=== PATIENT | female | born 1985 | race Caucasian/White ===

== ENCOUNTER → 2020-09-02 13:38 | Outpatient (CLI) | payer BC, SELFPAY ==
--- NOTE | ~2020-09-02 | XR_ITS ---
XR foot LT min 3V DATE: 09/02/2020 13:51 INDICATION: Left foot pain TECHNIQUE: 4 views COMPARISON: None FINDINGS: Posterior calcaneal enthesopathy. No fracture or dislocation, periosteal reaction or bone destruction. IMPRESSION: Posterior calcaneal enthesopathy Reviewed, dictated and finalized at location A.
== END ==
PROVIDERS: Visit Provider Physician Assistant
DX: M79.672 Pain in left foot (principal); M77.32 Calcaneal spur, left foot
CPT/HCPCS: 73630

== ENCOUNTER 2024-08-25 02:30 | Day surgery (SDC) | payer BC, SELFPAY ==
[2024-08-15 14:45] VITALS: BMI 40.9
--- NOTE | 2024-08-15 14:56 | PC.NURSE ---
Report to the Outpatient Waiting Room, entrance under the green pavilion located off [facility], at time _0830am on date __08/25/24 . Planned Procedure Time: 1030am .? Time changes happen often and if your time is changed the preop area will call you the afternoon before. - You and your visitor will be asked to self-screen and do not enter if you have any COVID symptoms. Please call surgeon if you need to reschedule. - A mask is optional within the hospital at this time. Patients may have clear liquids (water, carbonated beverages, clear teas, apple juice) until 3 hours prior to surgery with a maximum of 20 ounces. - No food from midnight until time of surgery and no smoking, or chewing tobacco (or any form of nicotine). No chewing gum, candy or mints. (0730am) - Take only the following medications with a SIP of water on the morning of surgery: _ Gabapentin, Labetalol, Levothyroxine, Sertaline, Buspirione, Tylenol if needed DO NOT STOP ANY OF YOUR OTHER PRESCRIPTION MEDICATIONS PRIOR TO SURGERY EXCEPT THE FOLLOWING Hold all vitamins and supplements for 3 days per anesthesiologist. Date to take last dose____08/21/24 Please no make-up, nail occitan, hairspray, perfume, deodorant, or body powder the day of surgery.? No jewelry (including any body piercings) or valuables the day of surgery, leave them at home.? Please take a shower or bath the night before, or the morning of, surgery with an antibacterial soap.? Wear comfortable, loose fitting clothing.? - Jewelry must be removed prior to entering the operating room.? Rings and piercings that are not removed may be cut off. - The hospital will not accept responsibility for valuables.? - Please leave all valuables, including medications, at home the day of surgery. If you are going home after surgery, a licensed charter and tour bus driver must drive you home.? - NO public transportation without another adult if you receive anesthesia. - We recommend that an adult stay with you for 24 hours following discharge. - We also recommend that you do not drive, make important decision, drink alcoholic beverages, or take any drugs that were not prescribed by your health care provider for at least 24 hours after your discharge time. Follow any additional instructions given to you from your surgeon. Telephone instructions given to __patient and asked if any additional questions and then verbalized understanding. Patient advised to call surgeon office or pre surgery nurse liaison [phone] if any additional questions.
--- OUTSIDE RECORDS SUMMARY | 2024-08-25 02:32 | XMS_ITS | Continuity of Care Document ---
Author Organization [facility] Address [address] [place] [address] Phone Care Team Providers Care Programmer Engineering And Scientific Name Role Phone Unavailable Unavailable Unavailable Advance Directives Directive Yes / No Effective Date File Name No Information Encounters Encounter Description Practice Location Reason(s) For Visit Diagnoses Date Provider Providers Copied on Encounter [facility], [address] [facility], [place], [place], [id number], [place] tel:[phone] [facility] No Information 7 No Information Referring Provider: IHSAN AVERY, [address] [place] [address],[place], [address]. tel:[phone] Family History Family Member Type Diagnosis Age At Onset No Information Payers Payer name Insurance type Covered alliance party ID Authoriza kareem(s) [facility] PPO [id number] Social History Type Description Quantity Date Captured Comments Sex Female Smoking Status No Information Chief Complaint And Reason For Visit No Information History Of Present Illness Encounter Date Complaint History Of Prese nt Illness No Information Instructions Date Instruction Additional Infor mation No Information Assessments Type Assessment Date No Information
--- OUTSIDE RECORDS SUMMARY | 2024-08-25 02:32 | XMS_ITS | Referral Summary ---
Author Organization [facility] Address [address] [place] [address] Care Team Providers Care Cnc Set Up Operator Name Role Phone Don Otto MD Unavailable Unavailable Francine Park Primary Care Pr ovider Source Comments [facility],non-owned Affiliates and Associated Physician Practices is amultiple site organization consisting of ambulatory clinics and hospital sitesin [place], [place], [place] and [place]. This disclosure is being madepursuant to the Care Everywhere program and may not contain all information available regarding this patient. Last updated 18.[facility] Encounters Date Type Department Care Team Description 08/08/2024 Orders Only [facility] [address] [place] [address] Debbie Lozano, RN Thoracic radiculopathy 08/07/2024 Refill [facility] [address] [place] [address] Delia Tyler, BROOM WORKER-PROGRAM INSTRUCTOR Refill Request 07/24/2024 Refill [facility] [address] [place] [address] Delia Tyler, BROOM WORKER-PROGRAM INSTRUCTOR Refill Request 07/10/2024 Refill [facility] [address] [place] [address] Delia Tyler, BROOM WORKER-PROGRAM INSTRUCTOR Refill Request 06/25/2024 Refill [facility] Pain Care [address] [facility] [address] [place] [address] Delia Tyler, BROOM WORKER-PROGRAM INSTRUCTOR Refill Request 06/08/2024 Refill [facility] Pain Care [address] [facility] [address] [place] [address] Delia Tyler, BROOM WORKER-PROGRAM INSTRUCTOR Refill Request 05/29/2024 Refill [facility] [address] [place] [address] Delia Tyler, BROOM WORKER-PROGRAM INSTRUCTOR Refill Request from Last 3 Months Allergies Active Allergy Reactions Criticality Noted Date Comments Hydroxychloroquine Sulfate Other 3 She has a history of anxiety Medications * Be aware that medications may not be up to date on this document. Alwaysverify current medications with the patient. Medication Sig Dispensed Refills Start Date End Date Status labetalol (NORMODYNE; TRANDATE) 100 MG tablet TAKE ONE TABLET BY MOUTH TWICE A DAY 6 Active hydroCHLOROthiazi de (HYDRODIURIL) 25 MG tablet TAKE ONE TABLET BY MOUTH ONCE DAILY 6 Active cyclobenzaprine (FLEXERIL) 10 MG tablet Take 1 tablet every day by oral route at bedtime for 7 days. Active fluticasone propionate (Flonase) 50 MCG/ACT nasal spray Flonase Allergy Relief Active busPIRone (Buspar) 10 MG tablet buspirone 10 mg tablet Active cetirizine (ZyrTEC ALLERGY) 10 MG gel capsule Active metFORMIN ER 24hr (Glucophage XR) 500 MG tablet 3 Active Machelle 0.35 MG tablet 2 Active sertraline (Zoloft) 50 MG tablet 2 Active Mounjaro 10 MG/0.5ML injection INJECT 10 MG EVERY WEEK BY SUBCUTANEOUS ROUTE DIRECTED. 2 Active traMADol (Ultram) 50 MG tablet TAKE 1 TABLET BY MOUTH 2 TIMES A DAY NEEDED FOR PAIN. 2 Active ketorolac (Toradol) 10 MG tabletIndications :Spondylosis of thoracic spine at multiple levels with radiculopathy,Spa sm of muscle of lower back Take 1 (one) tablet by mouth every 6 hours 20 tablet 3 Active traMADol (Ultram) 50 MG tablet tramadol 50 mg tablet 2 Active ALPRAZolam (Xanax) 0.25 MG tablet alprazolam 0.25 mg tablet TAKE 1 TABLET (0.25 MG TOTAL) BY MOUTH ONCE FOR 1 DOSE, TAKE 30 MINUTES PRIOR TO MRI 3 Active levothyroxine (Synthroid) 75 MCG tablet every 24 hours Active Melatonin 1 MG CHEW Active valsartan (Diovan) 160 MG tablet 3 Active albuterol HFA (Proventil; Ventolin; Proair) 108 (90 Base) MCG/ACT inhaler Inhale 2 (two) puffs by mouth every 6 hours 4 Active busPIRone (Buspar) 10 MG tablet Take 1 (one) tablet by mouth 2 times daily Active labetalol (Normodyne; Trandate) 100 MG tablet Take 1 (one) tablet by mouth every 12 hours Active phentermine (Ionamine) 15 MG capsule Take 1 (one) capsule by mouth once daily 4 Active methocarbamol (Robaxin) 500 MG tabletIndications :Thoracic radiculopathy,Spa sm of muscle TAKE 1 TABLET BY MOUTH EVERYDAY AT BEDTIME 30 tablet 5 Active gabapentin (Neurontin) 100 MG capsule TAKE 1 CAPSULE BY MOUTH EVERY DAY IN THE MORNING 30 capsule 5 Active gabapentin (Neurontin) 300 MG capsuleIndication s:pt takes 100mg in the am and 300mg at bed time Take 1 (one) capsule by mouth at bedtime Reasons: pt takes 100mg in the am and 300mg at bed time 30 capsule 2 5 Active gabapentin (Neurontin) 300 MG capsuleIndication s:Thoracic radiculopathy Take 1 (one) capsule by mouth 2 times daily 60 capsule 2 4 025 Discontinued(Re order) gabapentin (Neurontin) 100 MG capsule TAKE 1 CAPSULE BY MOUTH EVERY DAY IN THE MORNING 30 capsule 5 025 Discontinued Active Problems Problem Noted Date Diagnosed Date Lumbar radiculopathy 06/04/2022 IBS (irritable bowel syndrome) 07/20/2012 Overview (07/20/2012): 07/20/2012 spells of crampy abd pain will try Levsin and report to PCP Fatigue 03/30/2012 High risk medications (not anticoagulants) long- term use 03/30/2012 Obesity 03/30/2012 Polyarthralgia 03/30/2012 Overview (07/20/2012): 07/20/2012 neg CCP, elevated CRP chronic 20. diagnostic Us hands tenosynovitis wrist flexor compartment focal small erosion single MCP given minimal symptoms with NSAIDs plans for and lack of joint damage will follow off DMARDs Immunizations Name Administration Dates Next Due Covid Moderna primary monova lent 12+ yr 0.5mL 04/22/2022 INFLUENZA VACCINE, QUADR. (F LUZONE; FLULAVAL; FLUARIX; AFLURIA QUADRIVALENT; 6MO+), 0.5 ML (IIV4) 04/22/2022,03/22/2021,04/04/2020 INFLUENZA VACCINE, TRIV. (FL UZONE; FLULAVAL; FLUARIX; AFLURIA TRIVALENT; 6MO+), 0.5 ML (IIV3) 04/22/2017 TD (AGE 7-ADULT) 08/19/2012 TDAP (7yrs+) 10/31/2018 Social History Tobacco Use Types Packs/Day Years Used Date Smoking Tobacco: Former Cigarettes 0.5 4 0 06/21/2011 - 06/21/2015 Smokeless Tobacco: Never Tobacco Cessation:Counseling Given: Not Answered Alcohol Use Standard Drinks/Week Comments No 0 (1 standard drink = 0.6 oz pur e alcohol) Sex and Gender Information Value Date Recorded Sex Assigned at Not on file Gender Identity Not on file Sexual Orientation Not on file Last Filed Vital Signs Vital Sign Reading Time Taken Comments Blood Pressure 129/69 04/03/2024 9:29 AM CDT Pulse 89 04/03/2024 9:29 AM CDT Temperature 37.1 C (98.7 F) 03/17/2024 9:04 AM CDT Respiratory Rate 16 04/03/2024 9:29 AM CDT Oxygen Saturation 100% 03/17/2024 9:37 AM CDT Inhaled Oxygen Concentration - - Weight 119.3 kg (263 lb) 04/03/2024 9:29 AM CDT Height 167.6 cm (5' 6 ) 05/31/2023 12:56 PM ADVERTISING SALES ASSISTANT Body Mass Index 42.45 05/31/2023 12:56 PM ADVERTISING SALES ASSISTANT Plan of Treatment Not on file Care Teams Cnc Set Up Operator Relationship Specialty Start Date End Date Francine Park PA [address] [place] [id number] PCP - General 06/26/22 Don Otto MD [facility] 04/13/12
--- OUTSIDE RECORDS SUMMARY | 2024-08-25 02:32 | XMS_ITS | Clinical Summary ---
Author Organization [facility] Address [address] [place] [address] Phone Care Team Providers Care Foreign Language Teacher Name Role Phone Francine Venegas Primary Care Provider [phone] Social History Tobacco Use Types Packs/Day Years Used Date Smoking Tobacco: Never Assessed Comments Unknown Sex and Gender Information Value Date Recorded Sex Assigned at Not on file Legal Sex Female 1:52 PM CDT Gender Identity Not on file Sexual Orientation Not on file Plan of Treatment Health Maintenance Due Date Last Done Comments HEPATITIS B VACCINES (1 of 3 - 19+ 3-dose series) 11/03/2006 CERVICAL CANCER SCREENING 11/03/2017 INFLUENZA VACCINE (#1) 2024 04/22/2017 DTAP/TDAP/TD VACCINES (2 - T d or Tdap) 10/31/2028 10/31/2018 HPV VACCINES Aged Out No longer eligi ble based on patient's age to complete this topic PNEUMOCOCCAL VACCINE 0-49 YEARS Aged Out No longer eligible based on patient's age to complete this topic Insurance [facility] BLUE ACCESS CHOICE Care Teams Foreign Language Teacher Relationship Specialty Start Date End Date Francine Venegas PA PCP - General Physician [employer] Line Core Feeder 11/11/18
--- OUTSIDE RECORDS SUMMARY | 2024-08-25 02:32 | XMS_ITS | Data Portability ---
Author Organization [place] [facility]- Address # [address] [facility] [address] [place] [address] Assessment No assessment recorded. Plan of Treatment Reminders Order Date Submit Date Provider Last Modified By Organization Details Last Modified Time Details Appointments None record ed. Lab None record ed. Referral None record ed. Procedures None record ed. Surgeries None record ed. Imaging None record ed. Medication Orders None record ed. Patient TargetsNo targets recorded. Patient InstructionsNo instructions recorded. Reason for Referral None Reported. Problems No Known Problems Medical Equipment None Reported. Allergies No known drug allergies Medications Not known to be on any medication Vitals None Recorded Social History None recorded. Functional Status None recorded. Mental Status None recorded. Family History Nothing Reported. Medical History No medical history recorded. Gynecological HistoryNo gynecological history recorded. Obstetrics History GPAL:G 0 P 0 0 0 0 Immunizations Vaccine Type Date Status Note Provider Nam e and Address Organization Details Recorded Time Influenza, split virus, quadrivalent, PF 03/22/[address], 03/22/2021 11:08:11 Past Encounters Encounter ID Performer Location Encounter Start Date Encounter Closed Date Diagnosis/Indication Diagnosis SNOMED-CT Code Diagnosis ICD10 Code Diagnosis Note [id number] [facility] [address] [facility] [address] [place] [address] 03/22/2021 08:05:44 05/08/2021 17:12:31 Active or passive immunization [id number] Z23 Health Concerns Section Related Observation LastModified by Organization Detai ls LastModified Time None Recorded Concern Status LastModified by Organization Details LastModified Time None Recorded Advance Directives Directive None Recorded Payers Encounter Date Sequence Insurance Name Policy Number Policy Webster Covered Member ID Webster Member ID Guarantor Name 03/22/2021 1 [employer]: (PPO) [id number] Angel Donnelly [id number] Angel Donnelly OBGyn Episode No OBEpisode recorded.
--- OUTSIDE RECORDS SUMMARY | 2024-08-25 02:32 | XMS_ITS | Clinical Summary ---
Author Organization [facility] [employer] Address [address] [place] [address] Care Team Providers Care Sectionizer Name Role Phone Don Otto MD Unavailable Unavailable Francine Park Primary Care Pr ovider Source Comments [facility] [employer],non-owned Affiliates and Associated Physician Practices is amultiple site organization consisting of ambulatory clinics and hospital sitesin [place], [place], [place] and [place]. This disclosure is being madepursuant to the Care Everywhere program and may not contain all information available regarding this patient. Last updated 18.[facility] [employer] Allergies Active Allergy Reactions Criticality Noted Date [...] of joint damage will follow off DMARDs Encounters Date Type Department Care Team Description 08/08/2024 Orders Only [facility] Health Pain Care [address] [place], [place] [address] [address] [place] [address] Debbie Lozano, RN Thoracic radiculopathy 08/07/2024 Refill [facility] [address] [place] [address] [address] [place] [address] Delia Tyler, ASPHALT SMOOTHER-RESIDENT MEDICAL OFFICER Refill Request 07/24/2024 Refill [facility] [address] [place] [address] Ave [address] [place] [address] Delia Tyler, ASPHALT SMOOTHER-RESIDENT MEDICAL OFFICER Refill Request 07/10/2024 Refill [facility] [address] [place] [address] [address] [place] [address] Delia Tyler, ASPHALT SMOOTHER-RESIDENT MEDICAL OFFICER Refill Request 06/25/2024 Refill [facility] [address] [place] [address] Delia Tyler, ASPHALT SMOOTHER-RESIDENT MEDICAL OFFICER Refill Request 06/08/2024 Refill [facility] [address] [place] [address] Delia Tyler, ASPHALT SMOOTHER-RESIDENT MEDICAL OFFICER Refill Request 05/29/2024 Refill [facility] [address] [place] [address] Delia Tyler, ASPHALT SMOOTHER-RESIDENT MEDICAL OFFICER Refill Request from Last 3 Months Immunizations Name Administration Dates Next Due Covid Moderna primary monova lent 12+ yr 0.5mL 04/22/2022 INFLUENZA VACCINE, QUADR. (F LUZONE; FLULAVAL; FLUARIX; AFLURIA QUADRIVALENT; 6MO+), 0.5 ML (IIV4) 04/22/2022,03/22/2021,04/04/2020 INFLUENZA VACCINE, TRIV. (FL UZONE; FLULAVAL; FLUARIX; AFLURIA TRIVALENT; 6MO+), 0.5 ML (IIV3) 04/22/2017 TD (AGE 7-ADULT) 08/19/2012 TDAP (7yrs+) 10/31/2018 Family History Medical History Relation Name Comments Arthritis - Osteo Maternal Grandmother Hypertension Maternal Grandmother Arthritis - Osteo Mother Hypertension Mother Cancer Paternal Grandfather Cancer Paternal Grandmother Relation Name Status Comments Father Alive Maternal Grandmother Mother Alive Paternal Grandfather Paternal Grandmother Sister Alive Social History Tobacco Use Types Packs/Day Years [...] cm (5' 6 ) 05/31/2023 12:56 PM NITROGLYCERIN SEPARATOR OPERATOR Body Mass Index 42.45 05/31/2023 12:56 PM NITROGLYCERIN SEPARATOR OPERATOR Plan of Treatment Health Maintenance Due Date Last Done Comments PAP SMEAR 1987 HIV SCREENING 11/03/2002 HEPATITIS C SCREENING 10/30/2005 HEPATITIS B VACCINE (1 of 3 - 19+ 3-dose series) 11/03/2006 COVID-19 VACCINE ( season) 2024 04/22/2022, 04/22/2022, 07/15/2021, Additional history exists INFLUENZA VACCINE (#1) 2024 2, 03/22/2021, 04/04/2020, Additional history exists DEPRESSION SCREENING 06/21/2024 DTAP/TDAP/TD VACCINES (3 - Td or Tdap) 10/31/2028 10/31/2018, 08/19/2012 ZOSTER VACCINE (1 of 2) 11/03/2037 HIB VACCINE Aged Out No longer eligi ble based on patient's age to complete this topic HPV VACCINE Aged Out No longer eligi ble based on patient's age to complete this topic MENINGOCOCCAL (Group B) VACCINE Aged Out No longer eligible based on patient's age to complete this topic MENINGOCOCCAL VACCINE Aged Out No maci fabiola eligible based on patient's age to complete this topic PNEUMOCOCCAL VACCINE Aged Out No long er eligible based on patient's age to complete this topic Care Teams Sectionizer Relationship Specialty Start Date End Date Francine Park PA [address] [place] [address] PCP - General 06/26/22 Don Otto MD Rheumatology 04/13/12
--- OUTSIDE RECORDS SUMMARY | 2024-08-25 02:32 | XMS_ITS | Data Portability ---
Author Organization [facility] GERONIMODary Address [address] [facility] [place] [address] Care Team Providers Care Smoke Tester Name Role Phone CHUNG MIXON Primary Care Provider IHSAN Schaefer Dementia Program Director [phone] Assessment No assessment recorded. Plan of Treatment Reminders Order Date Submit Date Provider Last Modified By Organization Details Last Modified Time Details Appointments ANY 15 2024 08:45A M NOÉ Ovalle Not available Not available Not available Lab insulin, serum 2023 025 [email or web address] [facility], [address] [place], [address], 03/27/2024 10:35:15 HbA1c (hemoglob in A1c), blood 2023 025 [email or web address] [facility], [address] [place], [address], 03/27/2024 10:35:14 CMP, serum or plasma 2023 025 [email or web address] [facility], [address] [place], [address], 03/27/2024 10:35:15 CBC w/ auto diff 2023 025 [email or web address] [facility], [address] [place], [address], 03/27/2024 10:35:15 iron + TIBC + ferritin, serum 2023 025 [email or web address] [facility], [address] [place], [address], 03/27/2024 10:35:14 vitamin B12 + folate, serum or blood 2023 025 [email or web address] [facility], [address] [place], [address], 03/27/2024 10:35:15 TSH + free T4, serum 2023 025 [email or web address] [facility], [address] [place], [address], 03/27/2024 10:35:15 insulin, serum 2023 024 [facility], [address] [place], [address], 09/23/2023 14:05:38 HbA1c (hemoglob in A1c), blood 2023 024 [facility], [address] [place], [address], 09/23/2023 14:05:38 CMP, serum or plasma 2023 024 [facility], [facility] [place] [place], [address], 09/23/2023 14:05:38 CBC w/ auto diff 2023 024 [facility], [address] [place], [address], 09/23/2023 14:05:38 TSH + free T4, serum 2023 024 [facility], [address] [place], [address], 09/23/2023 14:05:38 Referral None recorded. Procedures None recorded. Surgeries None recorded. Imaging None recorded. Medication Orders Mounjaro 15 mg/0.5 mL subcutane ous pen injector 2023 024 [id number], [address] [place], [place], [address], 03/27/2024 10:35:21 Synthroid 75 mcg tablet 2023 024 [facility], [address] [facility] [facility] , [address], [place], [address], 03/27/2024 10:35:22 Vyvanse 30 mg capsule 2023 024 [id number], [address], [place], [address], 05/11/2024 15:45:18 phentermi ne 15 mg capsule 2023 024 [email or web address], [address], [place], [address], 03/27/2024 09:57:48 Zithromax Z-Daniel 250 mg tablet 2023 024 [email or web address], [address], [place], [address], 09/24/2023 14:07:02 prednison e 20 mg tablet 2023 024 [email or web address], [address], [place], [address], 03/27/2024 09:57:41 albuterol sulfate HFA 90 mcg/actua tion aerosol inhaler 2023 024 [id number], [address], [place], [address], 06/30/2024 08:16:53 Patient TargetsNo targets recorded. Patient InstructionsNo instructions recorded. Reason for Referral None Reported. Results Created Date Observation Date Name Description Value Unit Range Abnormal Flag Note LastModifiedBy Organization Detail LastModifiedTime Result Notes None recorded. Problems Name Problem SNOMED Code Status Onset Date Resolution Date Notes Provider Name and Address Organization Details Recorded Time Benign essential hypertension 4211673 Active 2023 Claire Ibarra null, [place] - [facility] 4 11:08:22 Mixed anxiety and depressive disorder 954919808 Active 2023 Claire [place]bar[place] [facility] 4 11:08:30 Hypothyroidism 08398475 Active 2023 Claire Ibar[place], [place] [facility] 4 11:08:35 Prediabetes 208048127 Active 2023 NOÉ Ovalle Attn: Accountin g,[address] [facility], [place], [address], [place] - [facility] 4 10:22:11 Body mass index 40+ - severely obese 281983571 Active 2023 NOÉ Ovalle Attn: Accountin g,[address] [facility], [place], [address], [place] - [facility] 4 10:22:17 Long-term drug therapy Active 2023 NOÉ Ovalle Attn: Accountin g,[address] [facility], [place], [address], [place] - [facility] 4 10:22:18 Attention deficit hyperactivity disorder, predominantly inattentive type 79892179 Active 2023 NOÉ Ovalle Attn: Accountin g,[address] [facility], [place], [address], [place] - [facility] 4 10:22:20 Anemia 891689254 Active 2023 NOÉ Ovalle Attn: Accountin g,[address] [place], [address], [place] - [facility] 4 22:00:58 Problem Notes None recorded. Medical Equipment None Reported. Allergies Allergen ID Allergen Name Allergen Category Reaction Reaction Severity Criticality Documentation Date Start Date Code Code System Note Provider Name and Address Organization Details Recorded Time 776505 Placidyl medicatio n Not available Not available Not available 09/02/2023 5 RxNorm Not Available Not Available Not Available Medications Name Sig Start Date Stop Date Status Note LastModified by Organization Details LastModified Time methocarbam ol 500 mg tablet TAKE 1 TABLET BY MOUTH EVERYDAY AT BEDTIME active Not Available Not Available No t Available metformin 500 mg tablet Take 1 tablet every day by oral route at dinner. 03/27 completed Not Available Not Available Not Available azithromyci n 250 mg tablet TAKE 2 TABLETS BY MOUTH TODAY, THEN TAKE 1 TABLET DAILY FOR 4 DAYS DIRECTED 09/23 completed Not Available Not Available Not Available ofloxacin 0.3 % eye drops ADMINISTE R 2 DROPS INTO BOTH EYES 4 (FOUR) TIMES A DAY FOR 7 DAYS 06/30 completed Not Available Not Available Not Available prednisone 20 mg tablet TAKE 2 TABLETS BY MOUTH EVERY DAY FOR 5 DAYS 03/27 completed Not Available Not Available Not Available dextroamphe tamine-amph etamine 10 mg tablet TAKE 1 TAB BY MOUTH DIRECTED LATER AFTERNOON DOSING NEEDED active Not Available Not Available No t Available phentermine 15 mg capsule TAKE 1 CAPSULE BY MOUTH EVERY DAY 03/27 completed Not Available Not Available Not Available levothyroxi ne 100 mcg tablet Take 1 tablet every day by oral route. 06/30 completed Not Available Not Available Not Available buspirone 10 mg tablet TAKE 1 TABLET BY MOUTH TWICE A DAY active Not Available Not Available No t Available Synthroid 75 mcg tablet Take 1 tablet every day by oral route. 2023 active Not Available Not Available Not Avai lable gabapentin 300 mg capsule TAKE 1 CAPSULE BY MOUTH AT BEDTIME active Not Available Not Available No t Available hydrochloro thiazide 25 mg tablet TAKE 1 TABLET BY MOUTH EVERY DAY active Not Available Not Available No t Available gabapentin 100 mg capsule TAKE 1 CAPSULE BY MOUTH EVERY DAY IN THE MORNING active Not Available Not Available No t Available labetalol 100 mg tablet TAKE 1 TABLET BY MOUTH EVERY 12 HOURS active Not Available Not Available No t Available albuterol sulfate HFA 90 mcg/actuati on aerosol inhaler INHALE 2 PUFFS BY MOUTH EVERY 6 HOURS 06/30 completed Not Available Not Available Not Available metformin ER 500 mg tablet,exte nded release 24 hr TAKE 1 TABLET BY MOUTH EVERY DAY active Not Available Not Available No t Available sertraline 50 mg tablet TAKE 1 TABLET BY MOUTH EVERY DAY active Not Available Not Available No t Available amoxicillin 875 mg-marty steele clavulanate 125 mg tablet TAKE 1 TABLET BY MOUTH TWICE A DAY FOR 7 DAYS 06/30 completed Not Available Not Available Not Available valsartan 160 mg tablet TAKE 1 TABLET BY MOUTH EVERY DAY active Not Available Not Available No t Available nitrofurant oin monohydrate /macrocryst als 100 mg capsule TAKE 1 CAPSULE BY MOUTH TWICE A DAY FOR 5 DAYS 03/27 completed Not Available Not Available Not Available hydrochloro thiazide 09/18 completed .25mg Not Available Not Available Not Available cholecalcif inocente (vitamin D3) 1,250 mcg (50,000 unit) capsule TAKE 1 CAPSULE EVERY WEEK BY ORAL ROUTE. 2023 active Not Available Not Available Not Avai lable lisdexamfet amine 30 mg capsule TAKE 1 CAPSULE BY MOUTH EVERY DAY 05/11 completed Not Available Not Available Not Available lisdexamfet amine 40 mg capsule TAKE 1 CAPSULE BY MOUTH EVERY DAY active Not Available Not Available No t Available Mounjaro 15 mg/0.5 mL subcutaneou s pen injector INJECT 15 MG SUBCUTANE OUSLY EVERY WEEK active Not Available Not Available No t Available Mounjaro 10 mg/0.5 mL subcutaneou s pen injector INJECT 10 MG EVERY WEEK BY SUBCUTANE OUS ROUTE DIRECTED. 03/27 completed Not Available Not Available Not Available Mounjaro 12.5 mg/0.5 mL subcutaneou s pen injector INJECT 12.5MG (ONE PEN) UNDER THE SKIN EVERY 7 DAYS DIRECTED 03/27 completed Not Available Not Available Not Available Vitals Date Recorded Body height Body mass index (BMI) Body weight Oxygen saturation Oxygen saturation in Arterial blood by Pulse oximetry Heart rate Respiratory rate Systolic blood pressure Diastolic blood pressure Provider Name and Address Organization Details Last Updated DateTime 167.64 cm 42.8 kg/m2 042358. 98 g 97 % 97 % 85 /min 20 /min 128 mm[Hg] 82 mm[Hg] Pete Rivera MA [facility] 4 10:17:42 Date Recorded Systolic blood pressure Diastolic blood pressure Provider Name and Address Organization Details Last Updated DateTime 09/02/2023 120 mm[Hg] 72 mm[Hg] NOÉ Ovalle Attn: Accounting, [place], [address], [facility] 09/02/2023 10:41:47 Date Recorded Body height Respiratory rate Oxygen saturation Oxygen saturation in Arterial blood by Pulse oximetry Heart rate Systolic blood pressure Diastolic blood pressure Provider Name and Address Organization Details Last Updated DateTime 167.64 cm 20 /min 100 % 100 % 75 /min 122 mm[Hg] 82 mm[Hg] Pete Rivera MA [facility] 10:01:46 Date Recorded Body mass index (BMI) Body weight Provider Name and Address Organization Details Last Updated DateTime 03/27/2024 43.7 kg/m2 388929.53 g NOÉ Ovalle Attn: Accounting,[address] [place], [address], [facility] 03/27/2024 10:11:40 Social History Question Answer Notes LastModified by Organizat ion Details LastModified Time Tobacco Smoking Status Former Smoker Pete Rivera MA null, [facility] 09/02/2023 10:23:23 Do You Have An Advance Directive? No Information not available 03/27/2024 What Is Your Level Of Alcohol Consumption? Occasional Information not available 09/02/2023 Are You Blind Or Do You Have Difficulty Seeing? No Glasses Information not available 09/02/2023 What Is Your Level Of Caffeine Consumption? Occasional Information not available 09/02/2023 In The 14 Days Before Symptom Onset, Have You Had Close Contact With A Laboratory-confir med COVID-19 While That Case Was Ill? No Information not available 09/02/2023 In The 14 Days Before Symptom Onset, Have You Had Close Contact With A Person Who Is Under Investigation For COVID-19 While That Person Was Ill? No Information not available 09/02/2023 Have You Been To An Area Known To Be High Risk For COVID-19? No Information not available 09/02/2023 Are You Deaf Or Do You Have Serious Difficulty Hearing? No Information not available 09/02/2023 What Type Of Diet Are You Following? REGULAR Information not available 09/02/2023 Are There Any Guns Present In Your Home? No Information not available 09/02/2023 What Was The Date Of Your Most Recent Tobacco Screening? 04/03/2024 Information not available 03/27/2024 What Is Your Current Pack Years? 10packyears Information not available 09/02/2023 Do You Use Your Seat Belt Or Car Seat Routinely? Yes Information not available 03/27/2024 Do You Have Smoke And Carbon Monoxide Detectors In Your Home? Yes Information not available 09/02/2023 How Much Tobacco Do You Smoke? No Information not available 09/02/2023 Do You Use Any Illicit Or Recreational Drugs? No Information not available 03/27/2024 Do You Use Sunscreen Routinely? No Information not available 09/02/2023 Has Tobacco Cessation Counseling Been Provided? No Information not available 09/02/2023 How Many Years Have You Smoked Tobacco? 1 Information not available 09/02/2023 Do You Or Have You Ever Used Any Other Forms Of Tobacco Or Nicotine? No Information not available 09/02/2023 Sex: Female Functional Status Question Answer Note LastModified by Organization D etails LastModified Time Are you able to care for yourself? Yes Information n ot available 09/02/2023 Mental Status None recorded. Family History Relationship Description Onset Age of this Age Resolved Age Notes LastModified by Organization Details LastModified Time Mother Disorder of thyroid gland [email or web address] Not available 2023 10:22:12 Mother Hypertensive disorder [email or web address] Not available 2023 10:22:18 Father Disorder of thyroid gland [email or web address] Not available 2023 10:22:13 Father Hypercholest erolemia tcarterma Not available 2023 10:22:32 Brother Hypertensive disorder tcarterma Not available 2023 10:22:23 Medical History Condition Response Coronary Artery Disease N Other N Atrial Fibrillation N High Blood Pressure Y Thyroid Problems N Kidney or Bladder Problems N GI Problems N Depression N COPD N Blood Clots N Skin Problems N Anemia N Heart Attack (NH) N Diabetes N Anxiety Disorder Y Muscle, Joint, or Bone Problems N Seizures/Epilepsy N Acid Reflux (GERD) N Cancer N Stroke N Asthma N Allergies N High Cholesterol N Hepatitis N Liver Disease N Headaches N Osteoporosis N Heart Failure N Gynecological History Statement/Question Response Flow Heavy Date of LMP 03/22/2024 Frequency of Cycle (Q days) 28 Menses Monthly Y Duration of Flow (days) 7 Current Control Method None LMP Definite Obstetrics History GPAL:G 2 P 2 0 0 2 Type Value Multiple Births 0 Full Term 2 Induced 0 Spontaneous 0 Premature 0 Living 2 Ectopics 0 Total 2 Immunizations Vaccine Type Date Status Note Provider Nam e and Address Organization Details Recorded Time COVID-19 vaccine, vector-nr, rS-Ad26, PF, 0.5 mL 1 completed LAURA Prado, [place] - [facility] 03/28/2024 16:54:43 COVID-19, mRNA, LNP-S, PF, 30 mcg/0.3 mL dose, trung-sucrose 2 completed LAURA [place], [place] [facility] 03/28/2024 16:54:43 COVID-19, mRNA, LNP-S, bivalent, PF, 50 mcg/0.5 mL or 25mcg/0.25 mL dose 2 completed LAURA [place], [place] [facility] 03/28/2024 16:54:43 Influenza, split virus, trivalent, PF 7 completed LAURA [place] [facility] 03/28/2024 16:54:43 Td (adult), 2 Lf tetanus toxoid, preservative free, adsorbed 3 completed LAURA [place], [place] [facility] 03/28/2024 16:54:43 Influenza, split virus, quadrivalent, PF 1 completed Pete Rivera MA null, [place] - [facility] 03/28/2024 16:54:43 Influenza, split virus, quadrivalent, PF 0 completed Danyellebrenda LAURA Rivera null, [place] - [facility] 03/28/2024 16:54:43 Influenza, split virus, quadrivalent, PF 2 completed Pete Rivera MA null, [place] - [facility] 03/28/2024 16:54:43 Past Encounters Encounter ID Performer Location Encounter Start Date Encounter Closed Date Diagnosis/Indication Diagnosis SNOMED-CT Code Diagnosis ICD10 Code Diagnosis Note [id number] NOÉ Ovalle [facility] [address] [place] [address] 09/02/2023 09:55:39 09/02/2023 10:51:49 Upper respiratory infection 37895890 J06.9 start zpack and prednisone course as directed. Rx for albuterol hfa PRN use Body mass index 40+ - severely obese 574418905 Z68.41 screening fasting insulin lab and start low dose phentermin e 15mg daily trial Benign ess ential hypertension 3266088 I10 pt is stable on hctz 25mg daily, valsartan 160mg daily, and labetalol 100mg bid. Mixed anxi ety and depressive disorder 517293986 F41.8 stable on sertraline 50mg daily. Hypothyroidism 39526835 E03.9 stable on levothyrox ine 100mcg daily. due for TFT lab panel Prediabetes 848888579 R7 3.03 a1c lab due ; pt is on metformin 500mg daily. She was on mounjaro prior but cost is too high now to continue. Long-term drug therapy 851347862 Z79.899 routine cmp and cbc due. [id number] NOÉ Ovalle [facility] [place] [address] [place] [address] 03/27/2024 09:52:32 03/27/2024 10:50:13 Mixed anxiety and depressive disorder 787502319 F41.8 Stable on BuSpar 10 mg twice daily and sertraline 50 mg daily Benign ess ential hypertension 2463149 I10 pt is stable on hctz 25mg daily, valsartan 160mg daily, and labetalol 100mg bid. Prediabetes 066229576 R7 3.03 5.4% A1c; pt is on metformin 500mg daily. Refill Mounjaro 15 mg weekly dosing Hypothyroidism 91999865 E03.9 Refill synthroid 75 mcg daily and repeat thyroid labs in August Body mass index 40+ - severely obese 903426963 Z68.41 Screening insulin level due again in August Long-term drug therapy 988210859 Z79.899 CMP lab due in August Adult heal th examination 091323435 Z00.01 Annual wellness exam completed Attention deficit hyperactivity disorder, predominantly inattentive type 45541973 F90.0 Letter from therapist reviewed with discussion on positive ADHD findings in their counseling sessions. Patient also tests high on questionna david scoring. We will start trial of Vyvanse 30 mg daily Anemia 503221638 D64.9 Mild decrease in CBC panel we will check iron studies and CBC again in August along with B12 and folic acid. Patient does have heavy menstrual cycles. [id number] NOÉ Ovalle [facility] [address] [place] [address] 06/30/2024 08:20:17 06/30/2024 09:27:25 Benign essential hypertension 1885310 I10 pt is stable on hctz 25mg daily, valsartan 160mg daily, and labetalol 100mg bid. Prediabetes 813859856 R7 3.03 5.4% A1c; pt is on metformin 500mg daily. Refill Mounjaro 15 mg weekly dosing Attention deficit hyperactivity disorder, predominantly inattentive type 80980404 F90.0 Patient is stable on Vyvanse 40 mg daily continue dosing follow-up every 3 months. No refills needed at this time Mixed anxi ety and depressive disorder 695708926 F41.8 Stable on BuSpar 10 mg twice daily and sertraline 50 mg daily Hypothyroidism 40928028 E03.9 synthroid 75 mcg daily and repeat thyroid labs in August Body mass index 40+ - severely obese 123904370 Z68.41 Screening insulin level due again in August Long-term drug therapy 914676936 Z79.899 Health Concerns Section Related Observation LastModified by Organization Detai ls LastModified Time None Recorded Concern Status LastModified by Organization Details LastModified Time None Recorded Advance Directives Directive N: Payers Encounter Date Sequence Insurance Name Policy Number Policy Webster Covered Member ID Webster Member ID Guarantor Name 09/02/2023 1 [place] [id number] 2 Lala Andrzej [id number] Lala N Andrzej 03/27/2024 1 [place] [id number] 2 Lala Andrzej [id number] Lala N Andrzej 06/30/2024 1 [place] [id number] 2 Lala Andrzej [id number] Lala N Andrzej Notes Date Note Type Note Provider Name and Address Organization Details Recorded Time 09/02/2023 text/html Anxiety/Depressi onRepo rted bypatient.Notes:stable on sertraline 50mg daily.Generic HPI TemplateReported bypatient.Notes:insuli n resistance and IGT hx. on metformin and mounjaro.HypertensionR eported bypatient.Notes:pt is stable on hctz 25mg daily, valsartan 160mg daily, and labetalol 100mg bid.ThyroidReported bypatient.Notes:stable on levothyroxine 100mcg daily.Upper Respiratory SymptomsReported bypatient.Location:[facility] Quality:hacking cough Severity:mild Duration:symptoms lasting over 2 weeks Context:no sick contacts; no foreign travel; non-smoker Associated Symptoms:no sputum production; no shortness of breath; no wheezing; no change in number of pillows needed to sleep at night; no sweats; no fever; no significant weight gain; no significant weight loss; no morning cough; no sore throat; no vomiting; no diarrhea; no rash; no nausea NOÉ Ovalle Attn: Accounting,[address] [place], [address], [facility] 09/19/2023 21:35:51 03/27/2024 text/html Anxiety/Depressi onRepo rted bypatient.Notes:stable on sertraline 50mg daily.Generic HPI TemplateReported bypatient.Notes:insuli n resistance and IGT hx. on metformin and mounjaro.HypertensionR eported bypatient.Notes:pt is stable on hctz 25mg daily, valsartan 160mg daily, and labetalol 100mg bid.ThyroidReported bypatient.Notes:stable on levothyroxine 100mcg daily. Due for updated labs NOÉ Ovalle Attn: Accounting,[address], [place], [address], [facility] 04/16/2024 22:03:09 06/30/2024 text/html Anxiety/Depressi onRepo rted bypatient.Notes:stable on sertraline 50mg daily.Generic HPI TemplateReported bypatient.Notes:insuli n resistance and IGT hx. on metformin and mounjaro.HypertensionR eported bypatient.Notes:pt is stable on hctz 25mg daily, valsartan 160mg daily, and labetalol 100mg bid.ThyroidReported bypatient.Notes:stable on levothyroxine 100mcg daily. Binge eating/ADHD: on vyvanse 40mg daily and noticing a very good response on NOÉ Ovalle Attn: Accounting,[address], [place], [address], [facility] 07/20/2024 19:22:39 OBGyn Episode No OBEpisode recorded.
--- OUTSIDE RECORDS SUMMARY | 2024-08-25 02:32 | XMS_ITS | Data Portability ---
Author Organization [place] [facility], Main Office Address [address] [place] [address] Assessment No assessment recorded. Plan of Treatment Reminders Order Date Submit Date Provider Last Modified By Organization Details Last Modified Time Details Appointments None recorded . Lab insulin, serum 023 04/13/20 [email or web address] [facility] [address] [place], [address], 3 15:49:04 HbA1c (hemoglo bin A1c), blood 04/13/20 [email or web address] [facility] [place] [address] [facility] [place], [address], 3 15:49:31 CBC w/ auto diff 04/13/20 [email or web address] [facility] [address] [place], [address], 3 15:49:48 CMP, serum or plasma 04/13/20 [email or web address] [facility] [place] [address] [place], [address], 3 15:49:57 lipid panel, serum 023 04/13/20 [email or web address] [facility], [address] [place], [address], 3 15:50:05 folate, serum 023 04/13/20 [email or web address] [facility] [place] [address] [place], [address], 3 15:49:40 TSH + free T4, serum 023 04/13/20 23 [email or web address] [facility], [address] [place], [address], 3 15:49:21 TSH + free T4, serum 023 10/30/19 23 FAY [facility], [address] [place], [address], 3 15:41:04 Referral None recorded . Procedures None recorded . Surgeries None recorded . Imaging None recorded . Medication Orders None recorded . Patient TargetsNo targets recorded. Patient InstructionsNo instructions recorded. Reason for Referral None Reported. Results Created Date Observation Date Name Description Value Unit Range Abnormal Flag Note LastModifiedBy Organization Detail LastModifiedTime 10/18/19 22 10/23/2021 ESTRA DIOL estradiol 55 pg/mL normal Refer ence Range Folli cular Phase : 19-14 4 Mid-C ycle: 64-35 7 Lutea l Phase : 56-21 4 Postm enopa usal: < or = 31 Refer ence range estab lishe d on post- puber padma patie nt popul ation . No pre-p ubert al refer ence range estab lishe d using this assay . For any patie nts for whom low Estra diol level s are antic ipate d (e.g. males , pre-p ubert al child jose francisco and hypog onada l/pos t-men opaus al femal es), the [facility] t[facility] Estra diol, Ultra sensi tive, LCMSM S assay is recom mansi d (orde r code 18927 ). Plefran e note: patie nts being treat ed with the drug fulve stran t (Fasl odex( R)) have demon strat ed signi fican t inter feren ce in immun oassa y metho ds for estra diol measu remen t. The cross react ivity could lead to false ly eleva meena estra diol test resul ts leadi ng to an inapp ropri ate clini jessie asses sment of estro gen statu s. [facility] order code [id number] -Estr adiol , Ultra sensi tive LC/MS /MS arpita escamilla es negli justice cross react ivity with fulve stran t. Not Available [facility] [place] [address] [place], [address], 10/23/2021 12:59:44 10/18/19 22 10/23/2021 PROGE STERO NE progesterone 1.1 NG/mL normal Refer ence Range s Femal e Folli cular Phase < 1.0 Lutea l Phase 2.6-2 1.5 Post menop ausal < 0.5 Pregn faith 1st Trime ster 4.1-3 4.0 2nd Trime ster 24.0- 76.0 3rd Trime ster 52.0- 302.0 Not Available [facility] [place] [address] [place], [address], 10/23/2021 12:59:43 10/18/19 22 10/23/2021 INSUL IN insulin 16.7 uIU/m L normal Refer ence Range < or = 19.6 Risk: Optim al < or = 19.6 Moder ate NA High >19.6 Adult cardi ovasc ular event risk categ ory cut point s (opti mal, moder ate, high) are based on [facility] popul ation data from 06/09 11. This insul in assay shows stron g cross -reac tivit y for some insul in analo gs (lisp ro, aspar t, and glarg ine) and much lower cross -reac tivit y with other s (dete pam, gluli sine) . Not Available [facility] [place] [address] [place], [address], 10/23/2021 12:59:42 10/18/19 22 10/23/2021 DHEA SULFA TE DHEA sulfate 87 mcg/d L 19-237 normal Not Available [facility] [place] [address] [place], [address], 10/23/2021 12:59:42 10/18/19 22 10/23/2021 CORTI CAYETANO, TOTAL cortisol, total 7.3 mcg/d L normal Refer ence Range : For 8 a.m.( 7-9 a.m.) Speci men: 4.0-2 2.0 Refer ence Range : For 4 p.m.( 3-5 p.m.) Speci men: 3.0-1 7.0 * Pleas e inter pret above resul ts accor dingl y * Not Available [facility] [place] [address] [place], [address], 10/23/2021 12:59:41 10/18/19 22 10/23/2021 VITAM IN B12/F OLATE , SERUM PANEL vitamin B12 374 pg/mL 200-11 00 normal Pleas e Note: Altho ugh the refer ence range for vitam in B12 is 200-1 100 pg/mL , it has been repor meena that betwe en 5 and 10% of patie nts with value s betwe en 200 and 400 pg/mL may exper ience neuro psych iatri c and hemat ologi c abnor malit ies due to occul t B12 defic iency ; less than 1% of patie nts with value s above 400 pg/mL will have sympt oms. Not Available [facility] [address] [place], [address], 10/23/2021 12:59:40 10/18/19 22 10/23/2021 VITAM IN B12/F OLATE , SERUM PANEL folate, serum 8.5 NG/mL normal Refer ence Range Low: <3.4 Borde rline : 3.4-5 .4 Jodie l: >5.4 Not Available [facility] [address] [place], [address], 10/23/2021 12:59:40 10/18/19 22 10/23/2021 T3 REVER SE, LC/MS /MS T3 reverse, lc/MS/MS 16 NG/dL 8-25 This test was devel oped and its stacy tical perfo rmanc e jenifer cteri stics have been deter mined by [facility] . It has not been clear ed or appro zarina by FDA. This assay has been valid ated pursu ant to the CLIA regul ation s and is used for clini jessie purpo ses. Not Available [facility] [place] [address] [place], [address], 10/23/2021 12:59:39 10/18/19 22 10/23/2021 T3, FREE T3, free 3.5 pg/mL 2.3-4. 2 normal Not Available [facility] [place] [address] [place], [address], 10/23/2021 12:59:38 10/18/19 22 10/23/2021 MAGNE SIUM magnesium 2.0 mg/dL 1.5-2. 5 normal Not Available [facility] [place] [address] [place], [address], 10/23/2021 12:59:38 10/18/19 22 10/23/2021 VITAM IN D,25- OH,TO PADMA,I A vitamin D,25-oh,tota l,ia 36 NG/mL 30-100 normal Vitam in D Statu s 25-OH Vitam in D: Defic iency : <20 ng/mL Insuf ficie ncy: 20 - 29 ng/mL Optim al: > or = 30 ng/mL For 25-OH Vitam in D testi ng on patie nts on D2-scales pplem entat ion and patie nts for whom quant itati on of D2 and D3 fract ions is requi red, the [facility](TM ) 25-OH VIT D, (D2,D 3), LC/MS /MS is recom mansi d: order code [id number] (master ents >2yrs ). See Note 1 Note 1 For addit ional infor molly fuentes e refer to http: //julius hickman.Que stDia gnost ics.c om/fa q/FAQ 199 (This link is being provi ded for infor chio nal/ educa nirav l purpo ses only. ) Not Available [facility] [place] [address] [place], [address], 10/23/2021 12:59:37 10/18/19 22 10/23/2021 HEMOG LOBIN A1C hemoglobin A1C 5.3 %_of_ total _HGB <5.7 normal For the purpo se of scree neo for the prese nce of diabe blanka: <5.7% Consi stent with the absen ce of diabe blanka 5.7-6 .4% Consi stent with incre ased risk for diabe blanka (pred iabet es) > or =6.5% Consi stent with diabe blanka This assay resul t is consi stent with a decre ased risk of diabe blanka. Curre ntly, no conse nsus exist s pita champion use of hemog lobin A1c for diagn osis of diabe blanka in child jose francisco. Accor ding to Ameri can Diabe blanka Assoc iatio n (ADA) guide lines , hemog lobin A1c <7.0% repre sents optim al contr ol in non-p regna nt diabe tic patie nts. Diffe rent metri cs may apply to speci fic patie nt popul ation s. Stand ards of Medic al Care in Diabe blanka(A DA). Not Available [facility] [place] [address], [place], [address], 10/23/2021 12:59:36 10/18/19 22 10/23/2021 COMPR EHENS KATHERINE METAB OLIC PANEL eGFR non-afr. kosovan 115 mL/mi n/1.7 3m2 > or = 60 normal Not Available [facility] [address] [place], [address], 10/23/2021 12:59:36 10/18/19 22 10/23/2021 COMPR EHENS KATHERINE METAB OLIC PANEL glucose 100 mg/dL 65-99 high Fasti ng refer ence inter kehinde For someo ne witho ut known diabe blanka, a gluco se value betwe en 100 and 125 mg/dL is consi stent with predi abete s and shoul d be confi rmed with a follo w-up test. Not Available [place] [address] [place], [address], 10/23/2021 12:59:36 10/18/19 22 10/23/2021 COMPR EHENS KATHERINE METAB OLIC PANEL urea nitrogen (BUN) 17 mg/dL 7-25 normal Not Available [facility] [address], [address], 10/23/2021 12:59:36 10/18/19 22 10/23/2021 COMPR EHENS KATHERINE METAB OLIC PANEL creatinine 0.67 mg/dL 0.50-1 .10 normal Not Available [address], [address], 10/23/2021 12:59:36 10/18/19 22 10/23/2021 COMPR EHENS KATHERINE METAB OLIC PANEL eGFR 134 mL/mi n/1.7 3m2 > or = 60 normal Not Available [address], [address], 10/23/2021 12:59:36 10/18/19 22 10/23/2021 COMPR EHENS KATHERINE METAB OLIC PANEL BUN/creatini ne ratio not applic able (calc ) 6-22 Not Available [address], [address], 10/23/2021 12:59:36 10/18/19 22 10/23/2021 COMPR EHENS KATHERINE METAB OLIC PANEL sodium 139 mmol/ L 135-14 6 normal Not Available [address], [address], 10/23/2021 12:59:36 10/18/19 22 10/23/2021 COMPR EHENS KATHERINE METAB OLIC PANEL potassium 4.1 mmol/ L 3.5-5. 3 normal Not Available [address], [address], 10/23/2021 12:59:36 10/18/19 22 10/23/2021 COMPR EHENS KATHERINE METAB OLIC PANEL chloride 102 mmol/ L 98-110 normal Not Available [address], [address], 10/23/2021 12:59:36 10/18/19 22 10/23/2021 COMPR EHENS KATHERINE METAB OLIC PANEL carbon dioxide 28 mmol/ L 20-32 normal Not Available [address], [address], 10/23/2021 12:59:36 10/18/19 22 10/23/2021 COMPR EHENS KATHERINE METAB OLIC PANEL calcium 9.6 mg/dL 8.6-10 .2 normal Not Available [address], [address], 10/23/2021 12:59:36 10/18/19 22 10/23/2021 COMPR EHENS KATHERINE METAB OLIC PANEL protein, total 7.3 g/dL 6.1-8. 1 normal Not Available [address], [address], 10/23/2021 12:59:36 10/18/19 22 10/23/2021 COMPR EHENS KATHERINE METAB OLIC PANEL albumin 4.6 g/dL 3.6-5. 1 normal Not Available [address], [address], 10/23/2021 12:59:36 10/18/19 22 10/23/2021 COMPR EHENS KATHERINE METAB OLIC PANEL globulin 2.7 g/dL_ (calc ) 1.9-3. 7 normal Not Available [address], [address], 10/23/2021 12:59:36 10/18/19 22 10/23/2021 COMPR EHENS KATHERINE METAB OLIC PANEL albumin/glob ulin ratio 1.7 (calc ) 1.0-2. 5 normal Not Available [address], [address], 10/23/2021 12:59:36 10/18/19 22 10/23/2021 COMPR EHENS KATHERINE METAB OLIC PANEL bilirubin, total 0.4 mg/dL 0.2-1. 2 normal Not Available [address], [address], 10/23/2021 12:59:36 10/18/19 22 10/23/2021 COMPR EHENS KATHERINE METAB OLIC PANEL alkaline phosphatase 68 U/L 31-125 normal Not Available [address], [address], 10/23/2021 12:59:36 10/18/19 22 10/23/2021 COMPR EHENS KATHERINE METAB OLIC PANEL AST 25 U/L 10-30 normal Not Available [address], [address], 10/23/2021 12:59:36 10/18/19 22 10/23/2021 COMPR EHENS KATHERINE METAB OLIC PANEL ALT 35 U/L 6-29 high Not Available [address], [address], 10/23/2021 12:59:36 10/18/19 22 10/23/2021 TSH+F REE T4 TSH 2.64 mIU/L normal Refer ence Range > or = 20 Years 0.40- 4.50 Pregn faith Range s First trime ster 0.26- 2.66 Secon d trime ster 0.55- 2.73 Third trime ster 0.43- 2.91 Not Available [address] [place], [address], 10/23/2021 12:59:35 10/18/19 22 10/23/2021 TSH+F REE T4 T4, free 1.1 NG/dL 0.8-1. 8 normal Not Available [address], [address], 10/23/2021 12:59:35 10/18/19 22 10/23/2021 TESTO STERO NE, FREE, BIOAV AILAB LE AND TOTAL , MS albumin 4.8 g/dL 3.6-5. 1 Not Available [address], [address], 10/23/2021 12:59:34 10/18/19 22 10/23/2021 TESTO STERO NE, FREE, BIOAV AILAB LE AND TOTAL , MS sex hormone binding globulin 24.7 nmol/ L 17-124 Not Available [address], [address], 10/23/2021 12:59:34 10/18/19 22 10/23/2021 TESTO STERO NE, FREE, BIOAV AILAB LE AND TOTAL , MS testosterone , free 2.0 pg/mL 0.2-5. 0 Not Available [address], [address], 10/23/2021 12:59:34 10/18/19 22 10/23/2021 TESTO STERO NE, FREE, BIOAV AILAB LE AND TOTAL , MS testosterone ,bioavailabl e 4.4 NG/dL 0.5-8. 5 Not Available [address], [address], 10/23/2021 12:59:34 10/18/19 22 10/23/2021 TESTO STERO NE, FREE, BIOAV AILAB LE AND TOTAL , MS testosterone , total, MS 14 NG/dL 2-45 For addit ional infor molly fuentes refer to https ://ed ucati on.qu westdi skipos tics. com/f aq/FA Q165 (This link is being provi ded for infor chio nal/e ducat ional purpo ses only. ) (Note ) This test was devel oped and its stacy tical perfo rmanc e jenifer cteri stics have been deter mined by [employer]. It has not been clear ed or appro zarina by the FDA. This assay has been valid ated pursu ant to the CLIA regul ation s and is used for clini jessie purpo ses. F med fusio n [address] [facility] [address] [facility] [address] [phone] Cornell nicholas MD Not Available [employer] [address], [address], 10/23/2021 12:59:34 10/18/19 22 10/23/2021 IRON, TIBC AND WINTER TIN PANEL ferritin 33 NG/mL 16-154 normal Not Available [address], [address], 10/23/2021 12:59:34 10/18/19 22 10/23/2021 IRON, TIBC AND WINTER TIN PANEL iron, total 51 mcg/d L 40-190 normal Not Available [address], [address], 10/23/2021 12:59:34 10/18/19 22 10/23/2021 IRON, TIBC AND WINTER TIN PANEL iron binding capacity 359 mcg/d L_(ca lc) 250-45 0 normal Not Available [address], [address], 10/23/2021 12:59:34 10/18/19 22 10/23/2021 IRON, TIBC AND WINTER TIN PANEL % saturation 14 %_(ca lc) 16-45 low Not Available [address], [address], 10/23/2021 12:59:34 02/03/2002/03/2022 INSUL IN insulin 26.3 uIU/m L high Refer ence Range < or = 19.6 Risk: Optim al < or = 19.6 Moder ate NA High >19.6 Adult cardi ovasc ular event risk categ ory cut point s (opti mal, moder ate, high) are based on [facility] popul ation data from 06/09 11. This insul in assay shows stron g cross -reac tivit y for some insul in analo gs (lisp ro, aspar t, and glarg ine) and much lower cross -reac tivit y with other s (dete pam, gluli sine) . Not Available [facility] [address], [address], 02/03/2022 13:53:42 02/03/2002/03/2022 VITAM IN B12/F OLATE , SERUM PANEL folate, serum 9.5 NG/mL normal Refer ence Range Low: <3.4 Borde rline : 3.4-5 .4 Jodie l: >5.4 Not Available [facility] [address], [address], 02/03/2022 13:53:41 02/03/20 22 02/03/2022 VITAM IN B12/F OLATE , SERUM PANEL vitamin B12 490 pg/mL 200-11 00 normal Not Available [facility] [address] [place], [address], 02/03/2022 13:53:41 02/03/20 22 02/03/2022 CBC (INCL UDES DIFF/ PLT) white blood cell count 10.5 thous and/u L 3.8-10 .8 normal Not Available [facility] [address] [place], [address], 02/03/2022 13:53:41 02/03/20 22 02/03/2022 CBC (INCL UDES DIFF/ PLT) red blood cell count 5.06 [place] on/uL 3.80-5 .10 normal Not Available [address], [address], 02/03/2022 13:53:41 02/03/20 22 02/03/2022 CBC (INCL UDES DIFF/ PLT) hemoglobin 13.0 g/dL 11.7-1 5.5 normal Not Available [address], [address], 02/03/2022 13:53:41 02/03/20 22 02/03/2022 CBC (INCL UDES DIFF/ PLT) hematocrit 39.5 % 35.0-4 5.0 normal Not Available [address], [address], 02/03/2022 13:53:41 02/03/20 22 02/03/2022 CBC (INCL UDES DIFF/ PLT) MCV 78.1 fL 80.0-1 00.0 low Not Available [address], [address], 02/03/2022 13:53:41 02/03/20 22 02/03/2022 CBC (INCL UDES DIFF/ PLT) MCH 25.7 pg 27.0-3 3.0 low Not Available [address], [address], 02/03/2022 13:53:41 02/03/20 22 02/03/2022 CBC (INCL UDES DIFF/ PLT) MCHC 32.9 g/dL 32.0-3 6.0 normal Not Available [address], [address], 02/03/2022 13:53:41 02/03/20 22 02/03/2022 CBC (INCL UDES DIFF/ PLT) RDW 13.7 % 11.0-1 5.0 normal Not Available [address], [address], 02/03/2022 13:53:41 02/03/20 22 02/03/2022 CBC (INCL UDES DIFF/ PLT) platelet count 288 thous and/u L 140-40 0 normal Not Available [address], [address], 02/03/2022 13:53:41 02/03/20 22 02/03/2022 CBC (INCL UDES DIFF/ PLT) MPV 9.5 fL 7.5-12 .5 normal Not Available [address], [address], 02/03/2022 13:53:41 02/03/20 22 02/03/2022 CBC (INCL UDES DIFF/ PLT) absolute neutrophils 7004 cells /uL 1500-7 800 normal Not Available [address], [address], 02/03/2022 13:53:41 02/03/20 22 02/03/2022 CBC (INCL UDES DIFF/ PLT) absolute lymphocytes 2457 cells /uL 850-39 00 normal Not Available [address], [address], 02/03/2022 13:53:41 02/03/20 22 02/03/2022 CBC (INCL UDES DIFF/ PLT) absolute monocytes 546 cells /uL 200-95 0 normal Not Available [address], [address], 02/03/2022 13:53:41 02/03/20 22 02/03/2022 CBC (INCL UDES DIFF/ PLT) absolute eosinophils 431 cells /uL 15-500 normal Not Available [address], [address], 02/03/2022 13:53:41 02/03/20 22 02/03/2022 CBC (INCL UDES DIFF/ PLT) absolute basophils 63 cells /uL 0-200 normal Not Available [address], [address], 02/03/2022 13:53:41 02/03/20 22 02/03/2022 CBC (INCL UDES DIFF/ PLT) neutrophils 66.7 % normal Not Available [address], [address], 02/03/2022 13:53:41 02/03/20 22 02/03/2022 CBC (INCL UDES DIFF/ PLT) lymphocytes 23.4 % normal Not Available [facility] [address], [address], 02/03/2022 13:53:41 02/03/20 22 02/03/2022 CBC (INCL UDES DIFF/ PLT) monocytes 5.2 % normal Not Available [facility] [address], [address], 02/03/2022 13:53:41 02/03/20 22 02/03/2022 CBC (INCL UDES DIFF/ PLT) eosinophils 4.1 % normal Not Available [address], [address], 02/03/2022 13:53:41 02/03/20 22 02/03/2022 CBC (INCL UDES DIFF/ PLT) basophils 0.6 % normal Not Available [address], [address], 02/03/2022 13:53:41 02/03/20 22 02/03/2022 HEMOG LOBIN A1C hemoglobin A1C 5.7 %_of_ total _HGB <5.7 high For golden luo witho ut known diabe blanka, a hemog lobin A1c value betwe en 5.7% and 6.4% is consi stent with predi abete s and shoul d be confi rmed with a follo w-up test. For someo ne with known diabe blanka, a value <7% indic ates that their diabe blanka is well contr olled . A1c targe ts shoul d be indiv idual ized based on durat ion of diabe blanka, age, comor bid condi tions , and other consi derat ions. This assay resul t is consi stent with an incre ased risk of diabe blanka. Curre ntly, no conse nsus exist s regar jaycee use of hemog lobin A1c for diagn osis of diabe blanka for child jose francisco. Not Available [facility] [address], [address], 02/03/2022 13:53:40 02/03/20 22 02/03/2022 COMPR EHENS KATHERINE METAB OLIC PANEL sodium 143 mmol/ L 135-14 6 normal Not Available [address], [address], 02/03/2022 13:53:40 02/03/20 22 02/03/2022 COMPR EHENS KATHERINE METAB OLIC PANEL glucose 94 mg/dL 65-99 normal Fasti ng refer ence inter kehinde Not Available [facility] [address], [address], 02/03/2022 13:53:40 02/03/20 22 02/03/2022 COMPR EHENS KATHERINE METAB OLIC PANEL urea nitrogen (BUN) 14 mg/dL 7-25 normal Not Available [facility] [address], [address], 02/03/2022 13:53:40 02/03/20 22 02/03/2022 COMPR EHENS KATHERINE METAB OLIC PANEL creatinine 0.62 mg/dL 0.50-0 .97 normal Not Available [facility] [address], [address], 02/03/2022 13:53:40 02/03/20 22 02/03/2022 COMPR EHENS KATHERINE METAB OLIC PANEL eGFR 120 mL/mi n/1.7 3m2 > or = 60 normal The eGFR is based on the CKD-E PI 2020 equat ion. To calcu late the new eGFR from a previ ous Creat inine or Cysta tin C resul t, go to https ://gary argueta.rafi [place].o oswald/pr ofseth ional s/ kdoqi /gfr% 5Fcal culat or Not Available [address] [address] [place], [address], 02/03/2022 13:53:40 02/03/20 22 02/03/2022 COMPR EHENS KATHERINE METAB OLIC PANEL BUN/creatini ne ratio not applic able (calc ) 6-22 Not Available [address], [address], 02/03/2022 13:53:40 02/03/20 22 02/03/2022 COMPR EHENS KATHERINE METAB OLIC PANEL potassium 4.2 mmol/ L 3.5-5. 3 normal Not Available [address] [address] [place], [address], 02/03/2022 13:53:40 02/03/20 22 02/03/2022 COMPR EHENS KATHERINE METAB OLIC PANEL chloride 104 mmol/ L 98-110 normal Not Available [address] [address] [place], [address], 02/03/2022 13:53:40 02/03/20 22 02/03/2022 COMPR EHENS KATHERINE METAB OLIC PANEL carbon dioxide 31 mmol/ L 20-32 normal Not Available [employer] [facility] [address] [address] [place], [address], 02/03/2022 13:53:40 02/03/20 22 02/03/2022 COMPR EHENS KATHERNIE METAB OLIC PANEL calcium 9.5 mg/dL 8.6-10 .2 normal Not Available [employer] [address] [address] [place], [address], 02/03/2022 13:53:40 02/03/20 22 02/03/2022 COMPR EHENS KATHERINE METAB OLIC PANEL protein, total 7.2 g/dL 6.1-8. 1 normal Not Available [address], [address], 02/03/2022 13:53:40 02/03/20 22 02/03/2022 COMPR EHENS KATHERINE METAB OLIC PANEL albumin 4.5 g/dL 3.6-5. 1 normal Not Available [address], [address], 02/03/2022 13:53:40 02/03/20 22 02/03/2022 COMPR EHENS KATHERINE METAB OLIC PANEL globulin 2.7 g/dL_ (calc ) 1.9-3. 7 normal Not Available [address], [address], 02/03/2022 13:53:40 02/03/20 22 02/03/2022 COMPR EHENS KATHERINE METAB OLIC PANEL albumin/glob ulin ratio 1.7 (calc ) 1.0-2. 5 normal Not Available [address], [address], 02/03/2022 13:53:40 02/03/20 22 02/03/2022 COMPR EHENS KATHERINE METAB OLIC PANEL bilirubin, total 0.4 mg/dL 0.2-1. 2 normal Not Available [address], [address], 02/03/2022 13:53:40 02/03/20 22 02/03/2022 COMPR EHENS KATHERINE METAB OLIC PANEL alkaline phosphatase 64 U/L 31-125 normal Not Available [address] [place], [address], 02/03/2022 13:53:40 02/03/20 22 02/03/2022 COMPR EHENS KATHERINE METAB OLIC PANEL AST 28 U/L 10-30 normal Not Available [employer] [facility] [address] [address] [place], [address], 02/03/2022 13:53:40 02/03/20 22 02/03/2022 COMPR EHENS KATHERINE METAB OLIC PANEL ALT 39 U/L 6-29 high Not Available [address] [address] [place], [address], 02/03/2022 13:53:40 07/07/19 23 07/08/2022 INSUL IN insulin 54.0 uIU/m L high Refer ence Range < or = 18.4 Risk: Optim al < or = 18.4 Moder ate NA High >18.4 Adult cardi ovasc ular event risk categ ory cut point s (opti mal, moder ate, high) are based on Insul in Refer ence Inter kehinde studi es perfo rmed at [facility] in 2021. Not Available [employer] [address], [address], 07/08/2022 14:02:02 07/07/1907/08/2022 T4, FREE T4, free 1.0 NG/dL 0.8-1. 8 normal Not Available [address] [address] [place], [address], 07/08/2022 14:02:02 07/07/1907/08/2022 TSH TSH 7.87 mIU/L high Refer ence Range > or = 20 Years 0.40- 4.50 Pregn faith Range s First trime ster 0.26- 2.66 Secon d trime ster 0.55- 2.73 Third trime ster 0.43- 2.91 Not Available [employer] [address] [address] [place], [address], 07/08/2022 14:02:01 07/07/19 23 07/08/2022 HEMOG LOBIN A1C hemoglobin A1C 5.2 %_of_ total _HGB <5.7 normal For the purpo se of nirmal larson for the prese nce of diabe blanka: <5.7% Consi stent with the absen ce of diabe blanka 5.7-6 .4% Consi stent with incre ased risk for diabe blanka (pred iabet es) > or =6.5% Consi stent with diabe blanka This assay resul t is consi stent with a decre ased risk of diabe blanka. Curre ntly, no conse nsus exist s [facility] use of hemog lobin A1c for diagn osis of diabe blanka in child jose francisco. Accor ding to [employer] [place] [employer] n (ADA) guide lines , hemog lobin A1c <7.0% repre sents optim al contr ol in non-p regna nt diabe tic patie nts. Diffe rent metri cs may apply to speci fic patie nt popul ation s. [facility] [place]([facility]). Not Available [address] [address] [place], [address], 07/08/2022 14:02:00 07/07/19 23 07/08/2022 COMPR EHENS KATHERINE METAB OLIC PANEL glucose 83 mg/dL 65-99 normal Fasti ng refer ence inter kehinde Not Available [address] [address] [place], [address], 07/08/2022 14:01:59 07/07/19 23 07/08/2022 COMPR EHENS KATHERINE METAB OLIC PANEL urea nitrogen (BUN) 17 mg/dL 7-25 normal Not Available [facility] [address] [address] [place], [address], 07/08/2022 14:01:59 07/07/19 23 07/08/2022 COMPR EHENS KAHTERINE METAB OLIC PANEL creatinine 0.74 mg/dL 0.50-0 .97 normal Not Available [facility] [address] [address] [place], [address], 07/08/2022 14:01:59 07/07/19 23 07/08/2022 COMPR EHENS KATHERINE METAB OLIC PANEL eGFR 109 mL/mi n/1.7 3m2 > or = 60 normal The eGFR is based on the CKD-E PI 2020 equat ion. To calcu late the new eGFR from a previ ous Creat inine or Cysta tin C resul t, go to https ://gary argueta.rafi [place].o oswald/pr yariel fitzgeraldal s/ kdoqi /gfr% 5Fcal culat or Not Available [address] [address] [place], [address], 07/08/2022 14:01:59 07/07/19 23 07/08/2022 COMPR EHENS KATHERINE METAB OLIC PANEL BUN/creatini ne ratio not applic able (calc ) 6-22 Not Available [address] [address] [place], [address], 07/08/2022 14:01:59 07/07/19 23 07/08/2022 COMPR EHENS KATHERINE METAB OLIC PANEL sodium 140 mmol/ L 135-14 6 normal Not Available [address] [address] [place], [address], 07/08/2022 14:01:59 07/07/19 23 07/08/2022 COMPR EHENS KATHERINE METAB OLIC PANEL potassium 4.0 mmol/ L 3.5-5. 3 normal Not Available [address] [address] [place], [address], 07/08/2022 14:01:59 07/07/19 23 07/08/2022 COMPR EHENS KATHERINE METAB OLIC PANEL chloride 104 mmol/ L 98-110 normal Not Available [address], [address], 07/08/2022 14:01:59 07/07/19 23 07/08/2022 COMPR EHENS KATHERINE METAB OLIC PANEL carbon dioxide 27 mmol/ L 20-32 normal Not Available [address] [address] [place], [address], 07/08/2022 14:01:59 07/07/19 23 07/08/2022 COMPR EHENS KATHERINE METAB OLIC PANEL calcium 9.7 mg/dL 8.6-10 .2 normal Not Available [address] [address] [place], [address], 07/08/2022 14:01:59 07/07/19 23 07/08/2022 COMPR EHENS KATHERINE METAB OLIC PANEL protein, total 7.5 g/dL 6.1-8. 1 normal Not Available [address], [address], 07/08/2022 14:01:59 07/07/19 23 07/08/2022 COMPR EHENS KATHERINE METAB OLIC PANEL albumin 4.8 g/dL 3.6-5. 1 normal Not Available [address], [address], 07/08/2022 14:01:59 07/07/19 23 07/08/2022 COMPR EHENS KATHERINE METAB OLIC PANEL alkaline phosphatase 80 U/L 31-125 normal Not Available [address] [address] [place], [address], 07/08/2022 14:01:59 07/07/19 23 07/08/2022 COMPR EHENS KATHERINE METAB OLIC PANEL globulin 2.7 g/dL_ (calc ) 1.9-3. 7 normal Not Available [address], [address], 07/08/2022 14:01:59 07/07/19 23 07/08/2022 COMPR EHENS KATHERINE METAB OLIC PANEL albumin/glob ulin ratio 1.8 (calc ) 1.0-2. 5 normal Not Available [address], [address], 07/08/2022 14:01:59 07/07/19 23 07/08/2022 COMPR EHENS KATHERINE METAB OLIC PANEL bilirubin, total 0.3 mg/dL 0.2-1. 2 normal Not Available [address] [address] [place], [address], 07/08/2022 14:01:59 07/07/19 23 07/08/2022 COMPR EHENS KATHERINE METAB OLIC PANEL AST 20 U/L 10-30 normal Not Available [facility] [address] [address] [address] , [place], [address], 07/08/2022 14:01:59 07/07/19 23 07/08/2022 COMPR EHENS KATHERINE METAB OLIC PANEL ALT 34 U/L 6-29 high Not Available [address] [address] [place], [address], 07/08/2022 14:01:59 07/07/19 23 07/08/2022 LIPID PANEL WITH RATIO S LDL-choleste rol 71 mg/dL _(jessie c) normal Refer ence range : <100 Kasia able range <100 mg/dL for prima ry preve ntion ; <70 mg/dL for patie nts with CHD or diabe tic patie nts with > or = 2 CHD risk facto rs. LDL-C is now calcu lated using the [facility]y [facility] arnoldu clyde n, which is a valid ated novel ene mac accur acy than the Fried maxime equat ion in the estim ation of LDL-C . Lindy hickman SS et al. SAROJ. 2013; 310(1 9): 2061- 2068 (http ://ed ucati on.Qu Syed Valensum. com/f aq/FA Q164) Not Available [address] [address] , [place], [address], 07/08/2022 14:01:58 07/07/19 23 07/08/2022 LIPID PANEL WITH RATIO S cholesterol, total 135 mg/dL <200 normal Not Available [address] [address] [place], [address], 07/08/2022 14:01:58 07/07/19 23 07/08/2022 LIPID PANEL WITH RATIO S HDL cholesterol 45 mg/dL > or = 50 low Not Available [address] [address] [place], [address], 07/08/2022 14:01:58 07/07/19 23 07/08/2022 LIPID PANEL WITH RATIO S triglyceride s 107 mg/dL <150 normal Not Available [facility] [address] [address] [place], [address], 07/08/2022 14:01:58 07/07/19 23 07/08/2022 LIPID PANEL WITH RATIO S chol/HDLC ratio 3.0 (calc ) <5.0 normal Not Available [address] [address] [place], [address], 07/08/2022 14:01:58 07/07/19 23 07/08/2022 LIPID PANEL WITH RATIO S LDL/HDL ratio 1.6 (calc ) Below avera ge Risk: <2.34 [place] ge Risk: 2.35- 4.12 Moder ate Risk: 4.13- 5.56 High Risk: >5.57 Not Available [address] [address] [place], [address], 07/08/2022 14:01:58 07/07/19 23 07/08/2022 LIPID PANEL WITH RATIO S non HDL cholesterol 90 mg/dL _(jessie c) <130 normal For patie nts with diabe blanka plus 1 major ASCVD risk facto r, treat ing to a non-H DL-C goal of <100 mg/dL (LDL- C of <70 mg/dL ) is nathan brown optio n. Not Available [address] [address] [place], [address], 07/08/2022 14:01:58 07/16/19 22 07/15/2021 MRI, thora cic spine , w/o contr ast No observ ation record ed. [id number] [facility] [address] [place], [address], 08/19/2022 06:09:13 09/16/19 23 09/15/2022 US, gallb ladde r No observ ation record ed. [email or web address] [facility] [address] [place], [address], 09/17/2022 14:49:26 10/23/19 23 10/21/2022 NM, hepat obili fannie scan, w/ CCK No observ ation record ed. [email or web address] [facility] (Radiology) [address] [place] [address] [place], [address], 10/29/2022 10:31:42 Result Notes None recorded. Problems Name Problem SNOMED Code Status Onset Date Resolution Date Notes Provider Name and Address Organization Details Recorded Time Hyperinsulina r obesity 461851107 Active 2021 Not Available [facility] 3 06:03:12 Benign essential hypertension 5967944 Active 2017 Not Available [facility] 3 06:03:12 Blood glucose outside reference range 854613586 Active 2021 Not Available [facility] 3 06:03:13 Folic acid deficiency 629478241 Active 2021 Not Available [facility] 3 06:03:13 Generalized anxiety disorder 12402435 Active 2021 Not Available [facility] 3 06:03:13 Long-term drug therapy Active 2021 Not Available [facility] 3 06:03:13 Thoracic spondylosis 950364983 Active 2021 Not Available [facility] 3 06:03:13 Hypothyroidis m 62468438 Active 2022 JEROME Gonsales null, [place] - [facility] 3 12:12:32 Night sweats 07692246 Active 2021 Not Available [facility] 3 06:03:13 Anxiety 84162591 Active 2020 Not Available [facility] 3 06:03:13 Otitis media 58307501 Active 2021 Not Available [facility] 3 06:03:13 Prediabetes 167006447 Active 2021 Not Available [facility] 3 06:03:13 Hyperinsulini sm 31980121 Active 2021 Not Available [facility] 3 06:03:14 Reduced libido 9270941 Active 2021 Not Available [facility] 3 06:03:14 Fatigue 86556773 Active 2021 Not Available [facility] 3 06:03:14 Right upper quadrant pain 723366811 Active 2022 NOÉ Ovalle [address], [place], [address] , [employer] 3 17:47:26 Insulin resistance 177448990 Active 2022 NOÉ Ovalle [address], [place], [address] , [employer] 3 10:49:36 Notes:COVID-19pos 06/2021 Problem Notes None recorded. Procedures Surgical History None recorded. Imaging Results Imaging Date Name Status LastModified by Organization Details LastModified Time 07/15/2021 MRI, thoracic spine, w/o contrast completed [id number] [facility] [address], [place], [address], 08/19/2022 06:09:13 09/15/2022 US, gallbladder completed [email or web address] [facility] [address] [place] [address] [place], [address], 09/17/2022 14:49:26 10/21/2022 NM, hepatobiliary scan, w/ CCK completed [email or web address] [facility] (Radiology) [address] [facility] , [place], [address], 10/29/2022 10:31:42 Procedure Notes None recorded. Medical Equipment None Reported. Allergies Allergen ID Allergen Name Allergen Category Reaction Reaction Severity Criticality Documentation Date Start Date Code Code System Note Provider Name and Address Organization Details Recorded Time 26135 Plaquenil medicatio n Not available Not available Not available 08/19/202276732 2 RxNorm Not Available [facility] 06:08:55 Medications Name Sig Start Date Stop Date Status Note LastModified by Organization Details LastModified Time cyclobenzap rine 10 mg tablet TAKE 1 TABLET BY MOUTH TWICE A DAY NEEDED FOR MUSCLE SPASMS 10/20 completed Not Available Not Available Not Available methocarbam ol 500 mg tablet TAKE 1 TABLET BY MOUTH THREE TIMES A DAY active Not Available Not Available No t Available doxycycline hyclate 100 mg capsule Take 1 capsule twice a day by oral route with meals. active Not Available Not Available No t Available labetalol 200 mg tablet Take 1 tablet 3 times a day by oral route. 05/15 completed Not Available Not Available Not Available triamcinolo ne acetonide 0.5 % topical cream APPLY A THIN LAYER TO THE AFFECTED AREA(S) BY TOPICAL ROUTE 2 TIMES PER DAY active Not Available Not Available No t Available azithromyci n 250 mg tablet 05/10 completed Not Available Not Available Not Available ibuprofen 800 mg tablet TAKE ONE TABLET BY MOUTH EVERY 8 HOURS AFTER MEALS 02/05 completed Not Available Not Available Not Available fluconazole 150 mg tablet take one tab po on day 1 and day 4 of antibioti c use 12/27 completed Not Available Not Available Not Available hydrocodone 5 mg-acetamin ophen 325 mg tablet TAKE 1 TABLET BY MOUTH 3 TIMES A DAY NEEDED FOR PAIN. 10/20 completed Not Available Not Available Not Available meloxicam 15 mg tablet TAKE 1 TABLET (15 MG TOTAL) BY MOUTH DAILY. 02/05 completed Not Available Not Available Not Available diphenoxyla te-atropine 2.5 mg-0.025 mg tablet 04/11 completed Not Available Not Available Not Available tramadol 50 mg tablet TAKE 1 TABLET BY MOUTH 2 TIMES A DAY NEEDED FOR PAIN. 05/02 /2023 completed Not Available Not Available Not Available amoxicillin 500 mg tablet TAKE 1 TABLET BY MOUTH THREE TIMES A DAY FOR 7 DAYS 08/30 completed Not Available Not Available Not Available ketorolac 10 mg tablet TAKE 1 (ONE) TABLET BY MOUTH EVERY 6 HOURS 10/20 completed Not Available Not Available Not Available oxycodone-a cetaminophe n 5 mg-325 mg tablet TAKE 1 TABLET BY MOUTH EVERY 6 HOURS NEEDED FOR PAIN 10/20 completed Not Available Not Available Not Available ofloxacin 0.3 % ear drops PLACE 5 DROPS IN AFFECTED EAR(S) 2 TIMES DAILY FOR 7 DAYS. 02/05 completed Not Available Not Available Not Available amoxicillin 875 mg tablet 05/10 completed Not Available Not Available Not Available alprazolam 0.25 mg tablet TAKE 1 TABLET (0.25 MG TOTAL) BY MOUTH ONCE FOR 1 DOSE, 30 MINUTES BEFORE MRI 07/08 completed Not Available Not Available Not Available meclizine 25 mg tablet 07/25 completed Not Available Not Available Not Available nystatin 100,000 unit/gram topical cream APPLY TO THE AFFECTED AREA(S) of abdomen BY TOPICAL ROUTE 2 TIMES PER DAY 06/28 completed Not Available Not Available Not Available buspirone 10 mg tablet TAKE 1 TABLET BY MOUTH TWICE A DAY active Not Available Not Available No t Available Synthroid 75 mcg tablet TAKE 1 TABLET EVERY MORNING FOR HYPOTHYRO IDISM 2022 active Not Available Not Available Not Avai lable hydrochloro thiazide 25 mg tablet TAKE 1 TABLET BY MOUTH EVERY DAY active Not Available Not Available No t Available methylpredn isolone 4 mg tablets in a dose pack TAKE 6 TABLETS ON DAY 1 DIRECTED ON PACKAGE AND DECREASE BY 1 TAB EACH DAY FOR A TOTAL OF 6 DAYS 07/08 completed Not Available Not Available Not Available labetalol 100 mg tablet TAKE 1 TABLET BY MOUTH EVERY 12 HOURS active Not Available Not Available No t Available cefdinir 300 mg capsule Take 1 capsule every 12 hours by oral route. active Not Available Not Available No t Available fluticasone propionate 50 mcg/actuati on nasal spray,suspe nsion SPRAY TWO SPRAYS IN EACH NOSTRIL ONCE DAILY active Not Available Not Available No t Available metformin ER 500 mg tablet,exte nded release 24 hr TAKE 1 TABLET BY MOUTH EVERY DAY AT DINNER active Not Available Not Available No t Available sertraline 50 mg tablet TAKE 1 TABLET BY MOUTH EVERY DAY active Not Available Not Available No t Available naproxen 500 mg tablet TAKE 1 TABLET BY MOUTH TWICE A DAY WITH MEALS 07/24 completed Not Available Not Available Not Available amoxicillin 875 mg-potassiu m clavulanate 125 mg tablet TAKE 1 TABLET BY MOUTH TWICE A DAY FOR 10 DAYS 02/03 completed Not Available Not Available Not Available valsartan 160 mg tablet TAKE 1 TABLET BY MOUTH EVERY DAY active Not Available Not Available No t Available nitrofurant oin monohydrate /macrocryst als 100 mg capsule Take 1 capsule every 12 hours by oral route. 11/05 completed Not Available Not Available Not Available Nyamyc 100,000 unit/gram topical powder APPLY TOPICALLY TO THE AFFECTED AREA(S) ON ABDOMEN TWO TIMES A DAY active Not Available Not Available No t Available Boostrix Tdap 2.5 Lf unit-8 mcg-5 Lf/0.5 mL intramuscul ar syringe 11/08 completed Not Available Not Available Not Available Machelle 0.35 mg tablet 11/02 completed Not Available Not Available Not Available Lo Loestrin Fe 1 mg-10 mcg (24)/10 mcg (2) tablet 07/25 completed Not Available Not Available Not Available PINMAKER-PNV-DHA 28 mg iron-1 mg-200 mg capsule daily active Not Available Not Available Not Available Fluarix Quad 0364-8092 (PF) 60 mcg (15 mcg x 4)/0.5 mL IM syringe 05/10 completed Not Available Not Available Not Available Fluarix Quad (PF) 60 mcg (15 mcg x 4)/0.5 mL IM syringe 05/10 completed Not Available Not Available Not Available ID NOW COVID-19 Test Kit TEST DIRECTED 06/02 completed Not Available Not Available Not Available COVID-19 test specimen collection DIRECTED 06/02 completed Not Available Not Available Not Available Mounjaro 7.5 mg/0.5 mL subcutaneou s pen injector INJECT 7.5 MG EVERY WEEK BY SUBCUTANE OUS ROUTE DIRECTED. 10/20 completed Not Available Not Available Not Available Mounjaro 5 mg/0.5 mL subcutaneou s pen injector Inject 5 mg every week by subcutane ous route as directed. 03/30 completed Not Available Not Available Not Available Mounjaro 15 mg/0.5 mL subcutaneou s pen injector INJECT 15 MG EVERY WEEK BY SUBCUTANE OUS ROUTE DIRECTED. 2022 active Not Available Not Available Not Avai lable Mounjaro 10 mg/0.5 mL subcutaneou s pen injector INJECT 10 MG EVERY WEEK BY SUBCUTANE OUS ROUTE DIRECTED. 10/20 completed Not Available Not Available Not Available Mounjaro 12.5 mg/0.5 mL subcutaneou s pen injector INJECT 12.5 MG SUBCUTANE OUSLY WEEKLY 2022 active Not Available Not Available Not Avai lable Mounjaro 2.5 mg/0.5 mL subcutaneou s pen injector INJECT 2.5 MG UNDER THE SKIN EVERY WEEK DIRECTED. 03/30 completed Not Available Not Available Not Available Vitals Date Recorded Body mass index (BMI) Body height Oxygen saturation Oxygen saturation in Arterial blood by Pulse oximetry Heart rate Respiratory rate Body temperature Body weight Systolic blood pressure Diastolic blood pressure Provider Name and Address Organization Details Last Updated DateTime 2 45.6 kg/m2 167.64 cm 98 % 98 % 83 /min 16 /min 98 [degF] 069746. 49 g 150 mm[Hg] 100 mm[Hg] Not Available [facility] 3 06:01:36 Date Recorded Body mass index (BMI) Body height Oxygen saturation Oxygen saturation in Arterial blood by Pulse oximetry Heart rate Respiratory rate Body temperature Body weight Systolic blood pressure Diastolic blood pressure Systolic blood pressure Diastolic blood pressure Provider Name and Address Organization Details Last Updated DateTime 2 44.5 kg/m2 167.64 cm 98 % 98 % 89 /min 16 /min 98.2 [degF] 192536. 34 g 130 mm[Hg] 90 mm[Hg] 140 mm[Hg] 88 mm[Hg] Not Available [facility] 3 06:01:36 Date Recorded Body mass index (BMI) Body height Oxygen saturation Oxygen saturation in Arterial blood by Pulse oximetry Heart rate Respiratory rate Body temperature Body weight Systolic blood pressure Diastolic blood pressure Provider Name and Address Organization Details Last Updated DateTime 3 41.8 kg/m2 167.64 cm 97 % 97 % 98 /min 16 /min 97.5 [degF] 156838. 42 g 148 mm[Hg] 98 mm[Hg] Not Available [facility] 3 06:01:36 Date Recorded Body height Body temperature Body mass index (BMI) Body weight Respiratory rate Oxygen saturation Oxygen saturation in Arterial blood by Pulse oximetry Heart rate Systolic blood pressure Diastolic blood pressure Provider Name and Address Organization Details Last Updated DateTime 3 167.64 cm 97.9 [degF] 42.3 kg/m2 131984. 2 g 16 /min 97 % 97 % 81 /min 128 mm[Hg] 82 mm[Hg] JEROME Gonsales ND [employer] [facility] [employer] 3 10:24:04 Date Recorded Body height Body temperature Body weight Heart rate Oxygen saturation Oxygen saturation in Arterial blood by Pulse oximetry Systolic blood pressure Diastolic blood pressure Provider Name and Address Organization Details Last Updated DateTime 3 167.64 cm 97.4 [degF] 682461. 02 g 75 /min 99 % 99 % 128 mm[Hg] 88 mm[Hg] Aby Ring RN ND [employer] [facility] [employer] 3 12:28:19 Date Recorded Body mass index (BMI) Systolic blood pressure Diastolic blood pressure Provider Name and Address Organization Details Last Updated DateTime 05/03/2023 42 kg/m2 120 mm[Hg] 80 mm[Hg] NOÉ Ovalle [address], [address], [employer] 05/03/2023 13:17:16 Social History Question Answer Notes LastModified by Organizat ion Details LastModified Time Tobacco Smoking Status Former Smoker quit age 30 Not Available [facility] 08/19/2022 05:55:48 What Is Your Level Of Alcohol Consumption? None [id number] Information not available 08/19/2022 What Is Your Level Of Caffeine Consumption? Moderate [id number] Information not available 08/19/2022 How Much Tobacco Do You Chew? None [id number] Information not available 08/19/2022 In The 14 Days Before Symptom Onset, Have You Had Close Contact With A Laboratory-confir med COVID-19 While That Case Was Ill? No [id number] Information not available 08/19/2022 In The 14 Days Before Symptom Onset, Have You Had Close Contact With A Person Who Is Under Investigation For COVID-19 While That Person Was Ill? No [id number] Information not available 08/19/2022 Are You Currently Employed? No Information not available 10/20/2022 What Type Of Diet Are You Following? REGULAR [id number] Information not available 08/19/2022 Which Illicit Or Recreational Drugs Have You Used? None [id number] Information not available 08/19/2022 What Is Your Occupation? Stay At Home Mom [id number] Information not available 08/19/2022 Have There Been Any Changes To Your Family Or Social Situation? No [id number] Information not available 08/19/2022 Do You Use Insect Repellent Routinely? No [id number].[id number] Information not available 08/19/2022 What Is Your Relationship Status? Single MIGRATION.[id number] Information not available 08/19/2022 Do You Use Your Seat Belt Or Car Seat Routinely? Yes [id number] Information not available 08/19/2022 Do You Have Smoke And Carbon Monoxide Detectors In Your Home? Yes MIGRATION.705783 [id number] Information not available 08/19/2022 Do You Or Have You Ever Used Smokeless Tobacco? Never Used Smokeless Tobacco MIGRATION.[id number] Information not available 08/19/2022 How Much Tobacco Do You Smoke? 0.5 PPD MIGRATION.[id number] 5436 Information not available 08/19/2022 Do You Use Any Illicit Or Recreational Drugs? No MIGRATION.[id number] 8241 Information not available 08/19/2022 Do You Use Sunscreen Routinely? Yes [id number] Information not available 08/19/2022 Have You Recently Traveled Abroad? No MIGRATION.108452 0676 Information not available 08/19/2022 Do You Have Any Dietary Restrictions? No MIGRATION.069351 9781 Information not available 08/19/2022 Do You Or Have You Ever Used Any Other Forms Of Tobacco Or Nicotine? No MIGRATION.080012 0190 Information not available 08/19/2022 Sex: Unknown Functional Status Question Answer Note LastModified by Organizat ion Details LastModified Time What is your exercise level? Occasional [id number] Information not available 08/19/2022 Mental Status None recorded. Family History Relationship Description Onset Age of this Age Resolved Age Notes LastModified by Organization Details LastModified Time Mother Hypertensive disorder [id number] Not available 08/19/2022 05:56:38 Father Hypothyroidi sm [id number] Not available 08/19/2022 05:56:38 Medical History Condition Response NERVE DISEASE N BLINDNESS N RHEUMATIC FEVER N KIDNEY STONES N BLADDER PROBLEMS N OTHER # 1 N POLIO N LUNG DISEASE/DISORDER N COPD N RADIATION / CHEMOTHERAPY N Other # 2 N BLOOD DISEASES N SURGERY N EAR OR HEARING PROBLEMS N MUMPS N DEPRESSION (INCLUDING POST ) Y BOWEL PROBLEMS N STROKE/TIA N ULCERS N BENIGN PROSTATIC HYPERPLASIA N MEASLES N MYOCARDIAL INFARCTION N OBESITY N GERD/NAUSEA N ANEURYSM N URINARY/BLADDER/KIDNEY PROBLEMS N CORONARY ARTERY DISEASE (CAD) N INPATIENT PSYCH CARE N ADDICTION CONCERNS N Impotence N ENDOMETRIOSIS N USE OF BLOOD THINNERS N SKIN PROBLEMS N GASTROINTESTINAL DISORDER N PERIPHERAL VASCULAR DISEASE N MUSCLE,JOINT OR BONE PROBLEMS N GASTROINTESTINAL BLEEDING N BLOOD CLOTS N ASTHMA N CATARACTS N ERECTILE DYSFUNCTION N VARICOSITIES N GI PROBLEMS N Low Testosterone N INFERTILITY N AIDS/HIV N LIVER DISEASE N MALE HYPOGONADISM N HYPERTENSION Y Deficiency N ANXIETY DISORDER Y BLOOD TRANSFUSION N ANEMIA/BLOOD DISORDER N CHRONIC EAR INFECTIONS N BRONCHITIS N TUBERCULOSIS N GLAUCOMA N FOOT PROBLEM N DIVERTICULITIS N SLEEP APNEA N CHICKENPOX N INFECTIOUS DISEASE N PROSTATE N HEART ARRHYTHMIA N INSOMNIA N HIGH CHOLESTEROL / HYPERLIPIDEMIA N HYPERTHYROIDISM N EYE PROBLEMS N NEUROLOGICAL PROBLEMS N EDEMA N CHRONIC PAIN SYNDROME N HYPOTHYROIDISM N CONSTIPATION N CAROTID BLOCKAGE N BACK / NECK PROBLEMS N HAVE YOU BEEN HOSPITALIZED OR SEEN IN [facility] IN THE PAST YEAR ? N ATHEROSCLEROSIS N BREAST PROBLEMS N DIALYSIS N ECZEMA N OSTEOPOROSIS N ARTHRITIS N NO SIGNIFICANT PAST MEDICAL HISTORY N APPENDICITIS N DIABETES, TYPE N BAD TEETH N ENT N HEARTBURN / REFLUX N AUTISM SPECTRUM DISORDER (ASD) N HEPATITIS / LIVER DISEASE N PULMONARY DISEASE N GOUT N SLEEP DISORDER N ALZHEIMER'S DISEASE N Brain Problems N HERPES N DEMENTIA N SEIZURES/EPILEPSY N HEADACHES/MIGRAINES N VASCULAR DISEASE N PACEMAKER N Blood Disorder N DIZZINESS N KIDNEY DISEASE N HEART DISEASE/HEART PROBLEMS N MULTIPLE SCLEROSIS N CARDIAC ARRHYTHMIA N CANCER: SPECIFY N ANESTHESIA COMPLICATIONS N Gall Stones N ATRIAL FIBRILLATION N PULMONARY EMBOLISM N AUTOIMMUNE DISEASE N Gynecological History Statement/Question Response How many live births 1 Sexually Active? Y Obstetrics History GPAL:G 1 P 0 0 0 1 Type Value Living 1 Total 1 Immunizations Vaccine Type Date Status Note Provider Nam e and Address Organization Details Recorded Time Tdap 9 completed Not Available [facility] 08/19/2022 06:08:47 COVID-19, mRNA, LNP-S, PF, 100 mcg/0.5mL dose or 50 mcg/0.25mL dose 2 completed Not Available [facility] 08/19/2022 06:08:47 Influenza, split virus, quadrivalent, preservative 2 completed Not Available [facility] 08/19/2022 06:08:47 influenza, unspecified formulation 7 completed Not Available [facility] 08/19/2022 06:08:47 Past Encounters Encounter ID Performer Location Encounter Start Date Encounter Closed Date Diagnosis/Indication Diagnosis SNOMED-CT Code Diagnosis ICD10 Code Diagnosis Note [id number] [facility] [address] [place] [address] 09/02/2020 00:00:00 09/18/2020 11:40:18 [id number] [facility] [address] [place] [address] 2020 00:00:00 11/15/2020 19:44:11 [id number] [facility] [address] [place] [address] 12/03/2020 00:00:00 12/18/2020 22:06:05 [id number] [facility] [address] [place] [address] 12/27/2020 00:00:00 01/16/2021 20:24:21 [id number] [facility] [address] [place] [address] 06/02/2021 00:00:00 06/19/2021 15:56:41 [id number] [facility] [address] [place] [address] 07/25/2021 00:00:00 08/18/2021 21:21:38 [id number] [facility] [address] [place] [address] 02/05/2022 00:00:00 02/15/2022 17:49:51 [id number] [facility] [address] [place] [address] 07/09/2022 00:00:00 07/19/2022 12:57:30 [id number] NOÉ Ovalle [facility] [address] [place] [address] 10/29/2022 10:19:10 10/29/2022 10:54:53 Benign essential hypertension 1305329 I10 stable on HCTZ 25mg daily, labetalol 100mg tid and valsartan 160mg daily. Hypothyroidism 35720161 E03.9 stable on thyroid supplement . due for TFTs now and then again in Mar. Anxiety 03133180 F41.9 stable on buspar 10mg bid. Blood gluc ose outside reference range 049989354 R73.09 5.3% on labs. Folic acid deficiency 19 3975840 E53.8 screening folate , on supplement OTC Long-term drug therapy [id number] Z79.899 routine CBC and CMP due in mar. Insulin resistance 52165 5000 E88.81 34.2 insulin lab. pt has done well on mounjaro course. Cholesterol screening 27 7681064 Z13.220 fasting lipids due in mar. [id number] NOÉ Ovalle [facility] [address] [place] [address] 05/03/2023 12:23:02 05/03/2023 13:06:40 Adult health examination 502207990 Z00.01 well exam completed Benign ess ential hypertension 2519510 I10 stable on HCTZ 25mg daily, labetalol 100mg tid and valsartan 160mg daily. Insulin resistance 24633 5000 E88.810 34.2 insulin lab. pt has done well on mounjaro course. Hypothyroidism 75863924 E03.9 stable on thyroid supplement Anxiety 59443784 F41.9 stable on buspar 10mg bid. Blood gluc ose outside reference range 081241631 R73.09 5.2% on labs. stable on metformin ER 500mg at dinner and mounjaro 12.5mg weekly. Long-term drug therapy 299418181 Z79.899 Health Concerns Section Related Observation LastModified by Organization Detai ls LastModified Time None Recorded Concern Status LastModified by Organization Details LastModified Time None Recorded Advance Directives Directive None Recorded Payers Encounter Date Sequence Insurance Name Policy Number Policy Webster Covered Member ID Webster Member ID Guarantor Name 10/29/2022 1 [facility] ([facility] [id number] Angel Donnelly [id number] Lala Donnelly 05/03/2023 1 [facility] ([place] [id number] Angel Donnelly [id number] Lala Donnelly Notes Date Note Type Note Provider Name and Address Organization Details Recorded Time 022 text/ht ml Anxiety/DepressionReported bypatient.Quality:symptoms improved; doesnt matter time of the day. Severity:denies suicidal ideations; able to maintain relationships; does not interfere with activities of daily living Duration:symptoms lasting over 2 weeks Onset/Timing:still present Context:major life stressors(life in general) Modifying Factors:medications as directed Associated Symptoms:denies homicidal ideations; no significant weight gain; no visual/auditory hallucinations; no delusions; mood good; no anxiety; no crying spells; no panic; no isolation; sleeping well; appetite good; energy good; no apathy; maintaining functionalityHypertensionReported bypatient.Duration:has noted for years Onset/Timing:better Alleviating Factors:medication Self Care:not under emotional stress Associated Symptoms:no palpitations; no decline in exercise capacity; no snoring;shortness of breath;fatigue Not Available [facility] [employer] [facility] 08/18/2021 21:21:38 022 text/ht ml Anxiety/DepressionReported bypatient.Quality:increased anxiety; situational Severity:denies suicidal ideations; able to maintain relationships; does not interfere with activities of daily living Duration:frequent Onset/Timing:still present Context:major life stressors; herniated disk Modifying Factors:herbal medications; social support; medications as directed; cbd gummy Associated Symptoms:denies homicidal ideations; no significant weight gain; no significant weight loss; no visual/auditory hallucinations; no shortness of breath; no crying spells; no panic; no isolation; maintaining functionality;eating more;sleep disturbancesHypertensionReported bypatient.Duration:has noted for years Onset/Timing:better Alleviating Factors:medication Self Care:recent hospitalization/ER visit? no; checks blood pressure at home (range 140/90s); blood pressure goal: ; LDL goal: ; using a beta josiah;under emotional stress Associated Symptoms:no shortness of breath; no fatigue; no palpitations; no decline in exercise capacity; no snoring Not Available [employer] 02/15/2022 17:49:51 023 text/ht ml Anxiety/DepressionReported bypatient.Quality:doesnt matter time of day Severity:denies suicidal ideations; able to maintain relationships; does not interfere with activities of daily living Duration:symptoms lasting over 2 weeks Onset/Timing:still present Context:major life stressors(her health) Modifying Factors:medications as directed Associated Symptoms:denies homicidal ideations; no significant weight gain; no significant weight loss; no visual/auditory hallucinations; no delusions; no shortness of breath; no crying spells; no panic; no isolation; sleeping well; appetite good; energy good; no apathy; maintaining functionality;anxiety;depression;anx iety with muscle tension;despair/hopelessness;headach esHypertensionReported bypatient.Duration:has noted for years Onset/Timing:better Alleviating Factors:medication Self Care:under emotional stress Associated Symptoms:no shortness of breath; no decline in exercise capacity; no snoring;fatigue;palpitations Not Available [employer] 07/19/2022 12:57:30 023 text/ht ml Anxiety, Generalized DisorderReported bypatient.Notes:stable on busparGeneric HPI TemplateReported bypatient.Notes:Pt is here to f/u on test results.HypertensionReported bypatient.Notes:stable on medsHypothyroidismReported bypatient.Notes:stable on supplement. NOÉ Ovalle [address], [place], [address], [employer] 11/17/2022 23:05:50 023 text/ht ml Anxiety/DepressionReported bypatient.Severity:denies suicidal ideations; able to maintain relationships; does not interfere with activities of daily living Context:no major life stressors Associated Symptoms:denies homicidal ideations; no significant weight gain; no significant weight loss; no visual/auditory hallucinations; no delusions; no shortness of breathHypertensionReported bypatient.Onset/Timing:better Associated Symptoms:no shortness of breath; no fatigue; no palpitations; no decline in exercise capacity; no snoringHypothyroidismReported bypatient.Onset/Timing:better Context/Risk:normal thyroid levels; no history of head or neck radiation during childhood; no history of thyroid disease; no history of hypothyroidism; no history of hyperthyroidism; no excess iron exposure Exercisegets exercise Associated Symptoms:no cold intolerance; no heat intolerance; no weight loss; no weight gain; no double vision; no dry eyes; no hoarseness; no difficulty swallowing; no neck masses; no deepening of the voice; no fast heart rate; no increased blood pressure; no palpitations; no chest pain; no chest tightess or pressure; no constipation; no diarrhea; no vomiting; no decreased appetite; no loose stools; no irregular menstrual periods; no excessive sweating; no joint pain; no numbness; no tingling of the hands or feet; no dry skin; no tremor; no nervousness; no anxiety; no depression; no fatigue; no sleep difficulties; no skin changes; no hair changes wellness NOÉ Ovalle [address], [address], [place], [address], [employer] 05/16/2023 18:37:14 OBGyn Episode No OBEpisode recorded.
--- OUTSIDE RECORDS SUMMARY | 2024-08-25 02:32 | XMS_ITS | Patient Health Summary ---
Author Organization [facility] Address [address] [place] [address] Care Team Providers Care Paper Testing Supervisor Name Role Phone Don Otto MD Unavailable Unavailable [facility] ovider Note from [facility],non-owned Affiliates and Associated Physician Practices is amultiple site organization consisting of ambulatory clinics and hospital sitesin [place], [place] and [place]. This disclosure is being madepursuant to the Care Everywhere program and may not contain all information available regarding this patient. Last updated 18.[facility] Allergies * Hydroxychloroquine Sulfate(Other) Medications * Be aware that medications may not be up to date on this document. Alwaysverify current medications with the patient. * labetalol (NORMODYNE; TRANDATE) 100 MG tablet(Started 01/23/2016) TAKE ONE TABLET BY MOUTH TWICE A DAY * hydroCHLOROthiazide (HYDRODIURIL) 25 MG tablet(Started 11/26/2015) TAKE ONE TABLET BY MOUTH ONCE DAILY * cyclobenzaprine (FLEXERIL) 10 MG tablet Take 1 tablet every day by oral route at bedtime for 7 days. * fluticasone propionate (Flonase) 50 MCG/ACT nasal spray Flonase Allergy Relief * busPIRone (Buspar) 10 MG tablet buspirone 10 mg tablet * cetirizine (ZyrTEC ALLERGY) 10 MG gel capsule * metFORMIN ER 24hr (Glucophage XR) 500 MG tablet(Started 06/25/2022) * Machelle 0.35 MG tablet(Started 03/19/2022) * sertraline (Zoloft) 50 MG tablet(Started 04/27/2022) * Mounjaro 10 MG/0.5ML injection(Started 06/02/2022) INJECT 10 MG EVERY WEEK BY SUBCUTANEOUS ROUTE DIRECTED. * traMADol (Ultram) 50 MG tablet(Started 06/11/2022) TAKE 1 TABLET BY MOUTH 2 TIMES A DAY NEEDED FOR PAIN. * ketorolac (Toradol) 10 MG tablet(Started 06/26/2022) Take 1 (one) tablet by mouth every 6 hours * traMADol (Ultram) 50 MG tablet(Started 10/17/2021) tramadol 50 mg tablet * ALPRAZolam (Xanax) 0.25 MG tablet(Started 06/23/2022) alprazolam 0.25 mg tablet TAKE 1 TABLET (0.25 MG TOTAL) BY MOUTH ONCE FOR 1 DOSE, TAKE 30 MINUTES PRIOR TO MRI * levothyroxine (Synthroid) 75 MCG tablet every 24 hours * Melatonin 1 MG CHEW * valsartan (Diovan) 160 MG tablet(Started 08/05/2022) * albuterol HFA (Proventil; Ventolin; Proair) 108 (90 Base) MCG/ACT inhaler (Started 09/02/2023) Inhale 2 (two) puffs by mouth every 6 hours * busPIRone (Buspar) 10 MG tablet Take 1 (one) tablet by mouth 2 times daily * labetalol (Normodyne; Trandate) 100 MG tablet Take 1 (one) tablet by mouth every 12 hours * phentermine (Ionamine) 15 MG capsule(Started 09/06/2023) Take 1 (one) capsule by mouth once daily * methocarbamol (Robaxin) 500 MG tablet(Started 07/24/2024) TAKE 1 TABLET BY MOUTH EVERYDAY AT BEDTIME * gabapentin (Neurontin) 100 MG capsule(Started 08/07/2024) TAKE 1 CAPSULE BY MOUTH EVERY DAY IN THE MORNING * gabapentin (Neurontin) 300 MG capsule(Started 08/08/2024) Take 1 (one) capsule by mouth at bedtime Reasons: pt takes 100mg in the am and 300mg at bed time 2 refills by 08/08/2025 Ended Medications* gabapentin (Neurontin) 300 MG capsule(Started 03/17/2024) (Discontinued) Take 1 (one) capsule by mouth 2 times daily 2 refills by 03/17/2025 * gabapentin (Neurontin) 100 MG capsule(Started 07/11/2024)(Discontinued) TAKE 1 CAPSULE BY MOUTH EVERY DAY IN THE MORNING Active Problems Problem Noted Date Diagnosed Date Lumbar radiculopathy 06/04/2022 IBS (irritable bowel syndrome) 07/20/2012 Fatigue 03/30/2012 High risk medications (not anticoagulants) long- term use 03/30/2012 Obesity 03/30/2012 Polyarthralgia 03/30/2012 Immunizations * Covid Moderna primary monovalent 12+ yr 0.5mL(Given 04/22/2022) * INFLUENZA VACCINE, QUADR. (FLUZONE; FLULAVAL; FLUARIX; AFLURIA QUADRIVALENT; 6MO+), 0.5 ML (IIV4)(Given 04/22/2022, 03/22/2021, 04/04/2020) * INFLUENZA VACCINE, TRIV. (FLUZONE; FLULAVAL; FLUARIX; AFLURIA TRIVALENT; 6MO+), 0.5 ML (IIV3)(Given 04/22/2017) * TD (AGE 7-ADULT)(Given 08/19/2012) * TDAP (7yrs+)(Given 10/31/2018) Social History Tobacco Use Types Packs/Day Years [...] cm (5' 6 ) 05/31/2023 12:56 PM CAR RENTAL SERVICE ATTENDANT Body Mass Index 42.45 05/31/2023 12:56 PM CAR RENTAL SERVICE ATTENDANT Procedures * PAIN MANAGEMENT PROCEDURE TIME(Performed 03/17/2024) Performed for Thoracic radiculopathy * PAIN MANAGEMENT PROCEDURE TIME(Performed 09/10/2023) Performed for Thoracic radiculopathy * PAIN MANAGEMENT PROCEDURE TIME(Performed 05/31/2023) Performed for Lumbar radiculopathy, Thoracic neuritis * PAIN MANAGEMENT PROCEDURE TIME(Performed 08/10/2022) Performed for Thoracic neuritis * XR THORACIC SPINE 2VW(Performed 06/26/2022) Performed for Thoracic back pain, unspecified back pain laterality, unspecified chronicity * XR LUMBAR SPINE 2 OR 3VW(Performed 06/26/2022) Performed for Acute right-sided low back pain, unspecified whether sciatica present * HCG BLOOD QUALITATIVE(Performed 07/18/2012) Performed for Amenorrhea * CYCLIC CITRUL PEPTIDE ANTIBODY IGG/IGA (CCP)(Performed 07/18/2012) Performed for Rheumatoid arthritis (HCC) * C-REACTIVE PROTEIN(Performed 07/18/2012) Performed for Rheumatoid arthritis (HCC) * COMPREHENSIVE METABOLIC PANEL(Performed 07/18/2012) Performed for High risk medications (not anticoagulants) long-term use * CBC W AUTO DIFFERENTIAL(Performed 07/18/2012) Performed for High risk medications (not anticoagulants) long-term use * US EXTREMITY LEFT COMP JOINT(Performed 05/17/2012) Performed for Polyarthralgia * US EXTREMITY NON VASCULAR RIGHT(Performed 05/17/2012) Performed for Polyarthralgia * XR KNEE BILAT STANDING 1VW(Performed 05/17/2012) Performed for Knee pain * XR KNEE RIGHT 2VW OR LESS(Performed 05/17/2012) Performed for Knee pain * XR KNEE LEFT 2VW OR LESS(Performed 05/17/2012) Performed for Knee pain * C-REACTIVE PROTEIN(Performed 05/16/2012) Performed for Polyarthralgia * POLYSOMNOGRAPHY 4 OR MORE PARAMETERS(Performed 04/12/2012) * POLYSOMNOGRAPHY 4 OR MORE PARAMETERS(Performed 04/12/2012) * LAB RESULTS ORDER(Performed 11/05/2011) * LAB RESULTS ORDER(Performed 11/05/2011) * LAB RESULTS ORDER(Performed 03/30/2011) * IMAGING/RADIOLOGY/XRAY RESULTS ORDER(Performed 03/30/2011) Results * Pain Management Procedure Time (03/17/2024 9:41 AM CDT) Only the most recent of4 resultswithin the time period is included. Anatomical Region Laterality Modality Radio Fluoroscop y Narrative 03/17/2024 9:50 AM CDT Ghassan Carranza MD 03/17/2024 9:51 AM PATIENT NAME: Lala Donnelly PATIENT DATE OF SURGERY: 03/17/2024 TITLE OF PROCEDURE: Interlaminar Thoracic Epidural Steroid Injection with fluoroscopic guidance LEVEL ENTERED: T11-12 PREOPERATIVE DIAGNOSES: M54.14 Thoracic radiculopathy POSTOPERATIVE DIAGNOSES: Same SURGEON: Ghassan Carranza MD ANESTHESIA: Local DESCRIPTION OF OPERATIVE PROCEDURE: Informed consent was obtained. The patient was brought to the Procedure Room and they positioned themselves to their comfort in the prone position. Time-out was conducted with all members of the care team. Standard prep and drape were performed. The appropriate level of the lumbar spine was identified with AP fluoroscopy. 2 ml of lidocaine 1% was injected in the subcutaneous tissue to provide superficial anesthesia. Following this, a 9cm 20 gauge tuohy needle was guided into the epidural space using A/P and lateral or contralateral oblique fluoroscopic images and with a loss of resistance to saline. Correct needle position was confirmed under continuous fluoroscopy with 1 ml of contrast dye. Good dye spread was noted in both the AP and lateral projections, without evidence of intraneural, intrathecal, or intravascular injection. After a negative aspiration, a swirled mixture of PF NS (1ml), 10mg dexamethasone, and 1ml Lidocaine 0.5% for a total volume of 3ml was incrementally injected into the epidural space. A final fluoroscopic image was taken to confirm appropriate medication spread.The needle was then withdrawn. The surgical site preparation was washed off of the patient. Band-Aids were applied. The patient was brought to the recovery area. The patient did very well and the procedure results were discussed. Standard discharge instructions were given to the patient. The patient knows how to contact the clinic should they have any questions or problems. COMPLICATIONS: None EBL: minimal PLAN: 2 week phone call -- repeat PRN > 3 months Ghassan Carranza MD DIAGNOSTIC JESUSIN G ORDERABLES * XR THORACIC SPINE 2VW (06/26/2022 1:56 PM CAR RENTAL SERVICE ATTENDANT) Anatomical Region Laterality Modality Spine Radiographic Ciera ging 06/26/2022 2:23 PM CAR RENTAL SERVICE ATTENDANT Impressions 06/26/2022 2:24 PM CAR RENTAL SERVICE ATTENDANT IMPRESSION: Mild degenerative changes. > Interpreting Provider: Patrick Mckeon MD on 06/26/2022 2:24 PM Narrative 06/26/2022 2:24 PM CAR RENTAL SERVICE ATTENDANT PROCEDURE: XR THORACIC SPINE 2VW, XR LUMBAR SPINE 2 OR 3VW, DATE/TIME OF EXAM: 06/26/2022 1:56 PM, LOCATION [facility] INDICATION: M54.6: Thoracic back pain, unspecified back pain laterality, unspecified chronicity ADDITIONAL CLINICAL INFORMATION: Ordering Provider Reason For Exam: back pain (accession [id number]), Lower back pain / spasm (accession [id number]) Technologist Note: Additional: COMPARISON: None. FINDINGS: Thoracic spine: No fracture or subluxation. Small endplate osteophytes at several levels indicating early degenerative change. Lumbar spine: Mild levocurvature of the lower thoracic and upper lumbar spine. No fracture or subluxation. Mild disc space narrowing at L5-S1. Mild lower lumbar facet degeneration. Procedure Note Patrick Mckeon MD - 06/26/2022 PROCEDURE: XR THORACIC SPINE 2VW, XR LUMBAR SPINE 2 OR 3VW, DATE/TIMEOF EXAM: 06/26/2022 1:56 PM, LOCATION [facility] INDICATION: M54.6: Thoracic back pain, unspecified back pain laterality, unspecified chronicity ADDITIONAL CLINICAL INFORMATION: Ordering Provider Reason For Exam: back pain (accession [id number]),Lower back pain / spasm (accession [id number]) Technologist Note: Additional: COMPARISON: None. FINDINGS: Thoracic spine: No fracture or subluxation. Small endplate osteophytes at several levels indicating early degenerative change. Lumbar spine: Mild levocurvature of the lower thoracic and upper lumbar spine. No fracture or subluxation. Mild disc space narrowing at L5-S1. Mild lower lumbar facet degeneration. IMPRESSION: Mild degenerative changes. > Interpreting Provider: Patrick Mckeon MD on 06/26/2022 2:24 PM Whitley L Roser PA-C DIAGNOSTIC IMAGING ORDERABLES * XR LUMBAR SPINE 2 OR 3VW (06/26/2022 1:55 PM CAR RENTAL SERVICE ATTENDANT) Anatomical Region Laterality Modality Spine Radiographic Ciera ging 06/26/2022 2:23 PM CAR RENTAL SERVICE ATTENDANT Impressions 06/26/2022 2:24 PM CAR RENTAL SERVICE ATTENDANT IMPRESSION: Mild degenerative changes. > Interpreting Provider: Patrick Mckeon MD on 06/26/2022 2:24 PM Narrative 06/26/2022 2:24 PM CAR RENTAL SERVICE ATTENDANT PROCEDURE: XR THORACIC SPINE 2VW, XR LUMBAR SPINE 2 OR 3VW, DATE/TIME OF EXAM: 06/26/2022 1:56 PM, LOCATION [facility] INDICATION: M54.6: Thoracic back pain, unspecified back pain laterality, unspecified chronicity ADDITIONAL CLINICAL INFORMATION: Ordering Provider Reason For Exam: back pain (accession [id number]), Lower back pain / spasm (accession [id number]) Technologist Note: Additional: COMPARISON: None. FINDINGS: Thoracic spine: No fracture or subluxation. Small endplate osteophytes at several levels indicating early degenerative change. Lumbar spine: Mild levocurvature of the lower thoracic and upper lumbar spine. No fracture or subluxation. Mild disc space narrowing at L5-S1. Mild lower lumbar facet degeneration. Procedure Note Patrick Mckeon MD - 06/26/2022 PROCEDURE: XR THORACIC SPINE 2VW, XR LUMBAR SPINE 2 OR 3VW, DATE/TIMEOF EXAM: 06/26/2022 1:56 PM, LOCATION [facility] INDICATION: M54.6: Thoracic back pain, unspecified back pain laterality, unspecified chronicity ADDITIONAL CLINICAL INFORMATION: Ordering Provider Reason For Exam: back pain (accession [id number]),Lower back pain / spasm (accession [id number]) Technologist Note: Additional: COMPARISON: None. FINDINGS: Thoracic spine: No fracture or subluxation. Small endplate osteophytes at several levels indicating early degenerative change. Lumbar spine: Mild levocurvature of the lower thoracic and upper lumbar spine. No fracture or subluxation. Mild disc space narrowing at L5-S1. Mild lower lumbar facet degeneration. IMPRESSION: Mild degenerative changes. > Interpreting Provider: Patrick Mckeon MD on 06/26/2022 2:24 PM Whitley UMANZOR-Sharona DIAGNOSTIC IMAGING ORDERABLES * HCG BLOOD QUALITATIVE (07/18/2012 3:08 PM CAR RENTAL SERVICE ATTENDANT) HCG Qual Serum Negative mIU/mL [facility] INSURANCE BILL Comment:Negative <6 Blood specimen (specimen) BLOOD SPECIMEN / Unknown 07/18/2012 3:08 PM CAR RENTAL SERVICE ATTENDANT 07/18/2012 7:35 PM CAR RENTAL SERVICE ATTENDANT Narrative Resulting Agency Comment [facility] [phone] Don Otto MD LAB - CHEMISTRY SANTI GAINES [facility] INSURANCE BILL * CYCLIC CITRUL PEPTIDE ANTIBODY IGG/IGA (CCP) (07/18/2012 3:07 PM CAR RENTAL SERVICE ATTENDANT) CCP Antibodies IgG/IgA 2 0 - 19 units [facility] INSURANCE BILL Comment: Negative <20 Weak positive 20 - 39 Moderate positive 40 - 59 Strong positive >59 BLOOD SPECIMEN / Unknown 07/18/2012 3:07 PM CAR RENTAL SERVICE ATTENDANT 07/18/2012 7:35 PM CAR RENTAL SERVICE ATTENDANT Narrative Resulting Agency Comment [facility] [phone] Don Otto MD LAB - SEROLOGY ORDER ROSSANA [facility] INSURANCE BILL * (ABNORMAL) C-REACTIVE PROTEIN (07/18/2012 3:07 PM CAR RENTAL SERVICE ATTENDANT) Only the most recent of2 resultswithin the time period is included. C-Reactive Protein 20.1(H) 0.0 - 4.9 mg/L [facility] INSURANCE BILL Blood specimen (specimen) BLOOD SPECIMEN / Unknown 07/18/2012 3:07 PM CAR RENTAL SERVICE ATTENDANT 07/18/2012 7:35 PM CAR RENTAL SERVICE ATTENDANT Narrative Resulting Agency Comment [facility] [address] [phone] Don Otto MD LAB - CHEMISTRY SANTI GAINES [facility] INSURANCE BILL * (ABNORMAL) CBC W AUTO DIFFERENTIAL (07/18/2012 3:07 PM CAR RENTAL SERVICE ATTENDANT) WBC 10.3 4.0 - 10.5 x10E3/uL [facility] INSURANCE BILL RBC 4.64 3.77 - 5.28 x10E6/uL [facility] INSURANCE BILL Hemoglobin 11.9 11.1 - 15.9 g/dL [facility] INSURANCE BILL Hematocrit 37.1 34.0 - 46.6 % [facility] INSURANCE BILL MCV 80 79 - 97 fL [facility] INSURANCE BILL MCH 25.6(L) 26.6 - 33.0 pg [facility] INSURANCE BILL MCHC 32.1 31.5 - 35.7 g/dL [facility] INSURANCE BILL RDW 14.7 12.3 - 15.4 % [facility] INSURANCE BILL Platelet Count 358 140 - 415 x10E3/uL [facility] INSURANCE BILL Granulocytes % 61 40 - 74 % [facility] INSURANCE BILL Lymphocytes % 31 14 - 46 % [facility] INSURANCE BILL Monocytes % 4 4 - 13 % [facility] INSURANCE BILL Eosinophils % 4 0 - 7 % [facility] INSURANCE BILL Basophils % 0 0 - 3 % [facility] INSURANCE BILL Immature Cells NOT NEEDED [facility] INSURANCE BILL Comment:Ancillary determined the test is not needed Granulocytes Absolute 6.2 1.8 - 7.8 x10E3/uL [facility] INSURANCE BILL Lymphocytes Absolute 3.2 0.7 - 4.5 x10E3/uL [facility] INSURANCE BILL Monocytes Absolute 0.4 0.1 - 1.0 x10E3/uL [facility] INSURANCE BILL Eosinophils Absolute 0.4 0.0 - 0.4 x10E3/uL [facility] INSURANCE BILL Basophils Absolute 0.0 0.0 - 0.2 x10E3/uL [facility] INSURANCE BILL Immature Granulocytes 0 0 - 2 % [facility] INSURANCE BILL Immature Granulocytes Absolute 0.0 0.0 - 0.1 x10E3/uL [facility] INSURANCE BILL nRBC NOT NEEDED [facility] INSURANCE BILL Comment:Ancillary determined the test is not needed Comment Hematology NOT NEEDED [facility] INSURANCE BILL Comment:Ancillary determined the test is not needed Blood specimen (specimen) BLOOD SPECIMEN / Unknown 07/18/2012 3:07 PM CAR RENTAL SERVICE ATTENDANT 07/18/2012 7:35 PM CAR RENTAL SERVICE ATTENDANT Narrative Resulting Agency Comment [facility] [address] [phone] Don Otto MD LAB - HEMATOLOGY ORD ERABLES [facility] INSURANCE BILL * (ABNORMAL) COMPREHENSIVE METABOLIC PANEL (07/18/2012 3:07 PM CAR RENTAL SERVICE ATTENDANT) Glucose 82 65 - 99 mg/dL [facility] INSURANCE BILL BUN 8 6 - 20 mg/dL [facility] INSURANCE BILL Creatinine 0.52(L) 0.57 - 1.00 mg/dL [facility] INSURANCE BILL eGFR by MDRD 134 >59 mL/min/1.7 3 [facility] INSURANCE BILL eGFR by MDRD 155 >59 mL/min/1.7 3 [facility] INSURANCE BILL BUN/Creatinine Ratio 15 8 - 20 [facility] INSURANCE BILL Sodium 140 134 - 144 mmol/L [facility] INSURANCE BILL Potassium 4.2 3.5 - 5.2 mmol/L [facility] INSURANCE BILL Chloride 105 97 - 108 mmol/L [facility] INSURANCE BILL CO2 20 20 - 32 mmol/L [facility] INSURANCE BILL Calcium 9.5 8.7 - 10.2 mg/dL [facility] INSURANCE BILL Protein Total 6.9 6.0 - 8.5 g/dL [facility] INSURANCE BILL Albumin 4.3 3.5 - 5.5 g/dL [facility] INSURANCE BILL Globulin Total 2.6 1.5 - 4.5 g/dL [facility] INSURANCE BILL Albumin/Globulin Ratio 1.7 1.1 - 2.5 [facility] INSURANCE BILL Bilirubin Total 0.1 0.0 - 1.2 mg/dL [facility] INSURANCE BILL Alkaline Phosphatase 70 25 - 150 IU/L [facility] INSURANCE BILL AST 11 0 - 40 IU/L [facility] INSURANCE BILL ALT 14 0 - 32 IU/L [facility] INSURANCE BILL Blood specimen (specimen) BLOOD SPECIMEN / Unknown 07/18/2012 3:07 PM CAR RENTAL SERVICE ATTENDANT 07/18/2012 7:35 PM CAR RENTAL SERVICE ATTENDANT Narrative Resulting Agency Comment [facility] [place] [address] [facility] [phone] Don Otto MD LAB - CHEMISTRY LAZAROTracie EDER [facility] INSURANCE BILL * US EXTREMITY NON VASCULAR RIGHT (05/17/2012 9:13 PM CAR RENTAL SERVICE ATTENDANT) Anatomical Region Laterality Modality Lower Extremity, Upper Extremity Other Narrative 05/17/2012 9:13 PM CAR RENTAL SERVICE ATTENDANT Don Otto MD 05/17/2012 9:13 PM Bilateral Hand Ultrasound Protocol: Complete Bilateral Hand Study for RA Activity and Median nerve dimensions using MyLab5 Ultrasound Apparatus with a 438 probe at 18mHz. This standardized study consists of dorsal and volar views of the MCP (2,3,5) and PIP (2,3) joints, with medial and lateral views as clinically indicated to show erosive change. The wrists are evaluated with medial dorsal views (combined as PW ) and a transverse volar view (AW). The median nerve is identified using a sweep technique starting in the mid forearm and measured at the proximal margin of the Quadratus and at the entrance to the carpal tunnel wrist crease immediately proximal to the carpal tunnel. An increase in median nerve diameter of over 4 mm immediately proximal the flexor retinaculum suggests significant Median nerve compression. Synovitis, erosions and power doppler signal are recorded as 0-3. Tenosynovitis is noted when present. Incidental findings of tophi, crystal deposition, that might effect the diagnostic impression are recorded by the candy supervisor under the direction of the attending physician and interpreted by Dr Otto. Right Synovitis Erosion Doppler Left Synovitis Erosion Doppler 2M 2 2 0 2M 0 0 0 2P 2 0 0 2P 0 0 0 3M 0 0 0 3M 0 0 0 3P 0 0 0 3P 0 0 0 5M 2 0 0 5M 0 0 0 PW 0 0 0 PW 0 0 0 RMN 4-7 mm2 LMN 8-9mm2 TEN Findings : Joint damage is none. Synovitis is compatible with mild without PDUS. Median nerve changes are normal. IMP: Normal exam Contact Don Otto MD directly to discuss this case at [phone]. Procedure Note Don Otto MD - 05/17/2012 9:12 PM CST Bilateral Hand Ultrasound Protocol: Complete Bilateral Hand Study for RA Activity and Median nerve dimensionsusing MyLab5 Ultrasound Apparatus with a 438 probe at 18mHz. Thisstandardized study consists of dorsal and volar views of the MCP (2,3,5)and PIP (2,3) joints, with medial and lateral views as clinicallyindicated to show erosive change. The wrists are evaluated with medialdorsal views (combined as PW ) and a transverse volar view (AW). Themedian nerve is identified using a sweep technique starting in the midforearm and measured at the proximal margin of the Quadratus and at theentrance to the carpal tunnel wrist crease immediately proximal to thecarpal tunnel. An increase in median nerve diameter of over 4 mmimmediately proximal the flexor retinaculum suggests significant Mediannerve compression. Synovitis, erosions and power doppler signal arerecorded as 0-3. Tenosynovitis is noted when present. Incidentalfindings of tophi, crystal deposition, that might effect the diagnosticimpression are recorded by the candy supervisor under the direction of theattending physician and interpreted by Dr Otto. Right Synovitis Erosion Doppler Left Synovitis Erosion Doppler 2M 2 2 0 2M 0 0 0 2P 2 0 0 2P 0 0 0 3M 0 0 0 3M 0 0 0 3P 0 0 0 3P 0 0 0 5M 2 0 0 5M 0 0 0 PW 0 0 0 PW 0 0 0 RMN 4-7 mm2 LMN 8-9mm2 TEN Findings : Joint damage is none. Synovitis is compatible with mildwithout PDUS. Median nerve changes are normal. IMP: Normal exam Contact Don Otto MD directly to discuss this case at [phone]. Don Otto MD US ORDERABLES * US EXTREMITY LEFT COMPLT NONVASC (05/17/2012 9:13 PM CAR RENTAL SERVICE ATTENDANT) Anatomical Region Laterality Modality Lower Extremity, Upper Extremity Other Narrative 05/17/2012 9:13 PM CAR RENTAL SERVICE ATTENDANT Don Otto MD 05/17/2012 9:13 PM Bilateral Hand Ultrasound Protocol: Complete Bilateral Hand Study for RA Activity and Median nerve dimensions using MyLab5 Ultrasound Apparatus with a 438 probe at 18mHz. This standardized study consists of dorsal and volar views of the MCP (2,3,5) and PIP (2,3) joints, with medial and lateral views as clinically indicated to show erosive change. The wrists are evaluated with medial dorsal views (combined as PW ) and a transverse volar view (AW). The median nerve is identified using a sweep technique starting in the mid forearm and measured at the proximal margin of the Quadratus and at the entrance to the carpal tunnel wrist crease immediately proximal to the carpal tunnel. An increase in median nerve diameter of over 4 mm immediately proximal the flexor retinaculum suggests significant Median nerve compression. Synovitis, erosions and power doppler signal are recorded as 0-3. Tenosynovitis is noted when present. Incidental findings of tophi, crystal deposition, that might effect the diagnostic impression are recorded by the candy supervisor under the direction of the attending physician and interpreted by Dr Otto. Right Synovitis Erosion Doppler Left Synovitis Erosion Doppler 2M 2 2 0 2M 0 0 0 2P 2 0 0 2P 0 0 0 3M 0 0 0 3M 0 0 0 3P 0 0 0 3P 0 0 0 5M 2 0 0 5M 0 0 0 PW 0 0 0 PW 0 0 0 RMN 4-7 mm2 LMN 8-9mm2 TEN Findings : Joint damage is none. Synovitis is compatible with mild without PDUS. Median nerve changes are normal. IMP: Normal exam Contact Don Otto MD directly to discuss this case at [phone]. Procedure Note Don Otto MD - 05/17/2012 9:12 PM CST Bilateral Hand Ultrasound Protocol: Complete Bilateral Hand Study for RA Activity and Median nerve dimensionsusing MyLab5 Ultrasound Apparatus with a 438 probe at 18mHz. Thisstandardized study consists of dorsal and volar views of the MCP (2,3,5)and PIP (2,3) joints, with medial and lateral views as clinicallyindicated to show erosive change. The wrists are evaluated with medialdorsal views (combined as PW ) and a transverse volar view (AW). Themedian nerve is identified using a sweep technique starting in the midforearm and measured at the proximal margin of the Quadratus and at theentrance to the carpal tunnel wrist crease immediately proximal to thecarpal tunnel. An increase in median nerve diameter of over 4 mmimmediately proximal the flexor retinaculum suggests significant Mediannerve compression. Synovitis, erosions and power doppler signal arerecorded as 0-3. Tenosynovitis is noted when present. Incidentalfindings of tophi, crystal deposition, that might effect the diagnosticimpression are recorded by the candy supervisor under the direction of theattending physician and interpreted by Dr Otto. Right Synovitis Erosion Doppler Left Synovitis Erosion Doppler 2M 2 2 0 2M 0 0 0 2P 2 0 0 2P 0 0 0 3M 0 0 0 3M 0 0 0 3P 0 0 0 3P 0 0 0 5M 2 0 0 5M 0 0 0 PW 0 0 0 PW 0 0 0 RMN 4-7 mm2 LMN 8-9mm2 TEN Findings : Joint damage is none. Synovitis is compatible with mildwithout PDUS. Median nerve changes are normal. IMP: Normal exam Contact Don Otto MD directly to discuss this case at [phone]. Don Otto MD US ORDERABLES * XR KNEES AP BILATERAL STANDING (05/17/2012 5:50 PM CAR RENTAL SERVICE ATTENDANT) Anatomical Region Laterality Modality Lower Extremity Other Narrative 05/17/2012 5:50 PM CAR RENTAL SERVICE ATTENDANT Don Otto MD 05/17/2012 5:50 PM NAD Procedure Note Don Otto MD - 05/17/2012 5:50 PM CST NAD Don Otto MD DIAGNOSTIC IMAGING O RDERABLES * XR KNEE 1 OR 2 VW RIGHT (05/17/2012 5:50 PM CAR RENTAL SERVICE ATTENDANT) Anatomical Region Laterality Modality Lower Extremity Other Narrative 05/17/2012 5:50 PM CAR RENTAL SERVICE ATTENDANT Don Otto MD 05/17/2012 5:50 PM NAD Procedure Note Don Otto MD - 05/17/2012 5:50 PM CST NAD Don Otto MD DIAGNOSTIC IMAGING O RDERABLES * XR KNEE 1 OR 2 VW LEFT (05/17/2012 5:50 PM CAR RENTAL SERVICE ATTENDANT) Anatomical Region Laterality Modality Lower Extremity Other Narrative 05/17/2012 5:50 PM CAR RENTAL SERVICE ATTENDANT Don Otto MD 05/17/2012 5:50 PM NAD Procedure Note Don Otto MD - 05/17/2012 5:50 PM CST NAD Don Otto MD DIAGNOSTIC IMAGING O RDERABLES * POLYSOMNOGRAPHY (04/12/2012) Don Otto MD SLEEP [facility]ENTER ORDERAB LES * POLYSOMNOGRAPHY (04/12/2012) Don Otto MD SLEEP CENTER ORDERAB LES * LAB RESULTS ORDER (11/05/2011) Only the most recent of3 resultswithin the time period is included. Don Otto MD LAB - THERAPEUTIC DR LOREN MONITORING ORDERABLES * IMAGING/RADIOLOGY/XRAY RESULTS ORDER (03/30/2011) Anatomical Region Laterality Modality Other Don Otto MD IMAGING Care Teams Paper Testing Supervisor Relationship Specialty Start Date End Date Francine Park PA [address] [place] [address] PCP - General 06/26/22 Don Otto MD [facility] 04/13/12
--- OUTSIDE RECORDS SUMMARY | 2024-08-25 02:33 | XMS_ITS | Clinical Summary ---
Author Organization [facility] Address [address] [place] [address] Care Team Providers Care Software Developer Consultant Name Role Phone Francine Venegas Primary Care Pr ovider Stevenson Da Silva MD Unavailable [phone] Allergies Active Allergy Reactions Criticality Noted Date Comments Hydroxychloroquine Medications ALPRAZolam (XANAX) 0.25 mg tablet Take 1 tablet (0.25 mg total) by mouth daily as needed 12/05/19 16 Active busPIRone (BUSPAR) 10 mg tablet buspirone 10 mg tablet 01/19/20 19 Active cetirizine (ZyrTEC) 10 mg capsule Active enalapriL-hydroch lorothiazide (VASERETIC) 10-25 mg per tablet 05/02/20 19 Active fluticasone propionate (FLONASE) 50 mcg/actuation nasal spray fluticasone propionate 50 mcg/actuation nasal spray,suspension Active ibuprofen (ADVIL,MOTRIN) 200 mg tab/cap Activ e labetaloL (NORMODYNE,TRANDA TE) 100 mg tablet labetalol 100 mg tablet 01/20/20 16 Active magnesium oxide,aspartate,c itr 400 mg magnesium capsule Ac tive meclizine (ANTIVERT) 25 mg tablet Take 1 tablet (25 mg total) by mouth 3 (three) times a day as needed 04/09/20 21 Active melatonin 1 mg tablet,chewable Acti ve norethindrone (MICRONOR) 0.35 mg tablet 06/13/20 20 Active sertraline (ZOLOFT) 50 mg tablet sertraline 50 mg tablet 01/19/20 19 Active traMADoL (ULTRAM) 50 mg tabletIndications :Pain in thoracic spine,Thoracic radiculopathy Take 1 tablet (50 mg total) by mouth 2 (two) times a day as needed for pain 60 tablet 3 10/18/19 22 Active Additional Information Patient not taking.Reported on 06/12/2024 metFORMIN XR (GLUCOPHAGE XR) 500 mg 24 hr tablet 02/19/20 Active Mounjaro 2.5 mg/0.5 mL pen injector INJECT 2.5 MG UNDER THE SKIN EVERY WEEK DIRECTED. 02/07/20 Active naloxone (NARCAN) 4 mg/actuation spray,non-aerosol Administer 1 spray into affected nostril(s) as needed for opioid reversal or respiratory depression Call 911. Administer a single spray in one nostril. Repeat every 3 minutes as needed if no or minimal response. 1 each 03/23/20 Active Additional Information Patient not taking.Reported on 06/12/2024 HYDROcodone-aceta minophen (NORCO) 5-325 mg per tabletIndications :Pain Take 1 tablet by mouth 3 (three) times a day as needed for pain 90 tablet 06/04/20 Active Additional Information Patient not taking.Reported on 06/12/2024 oxyCODONE-acetami nophen (PERCOCET) 5-325 mg per tabletIndications :Pain Take 1 tablet by mouth every 6 (six) hours as needed for pain 6 tablet 06/23/19 Active Additional Information Patient not taking.Reported on 06/12/2024 cyclobenzaprine (FLEXERIL) 10 mg tablet Take 1 tablet (10 mg total) by mouth 2 (two) times a day as needed for muscle spasms 60 tablet 09/12/19 23 Active Additional Information Patient not taking.Reported on 06/12/2024 valsartan (DIOVAN) 160 mg tablet Take 1 tablet (160 mg total) by mouth daily 08/05/19 23 Active methocarbamoL (ROBAXIN) 500 mg tablet Take 1 tablet (500 mg total) by mouth nightly 07/01/19 24 Active levothyroxine (Synthroid) 75 mcg tablet TAKE 1 TABLET EVERY MORNING FOR HYPOTHYROIDISM 12/30/19 23 Active hydroCHLOROthiazi de (HYDRODIURIL) 25 mg tablet Take 1 tablet (25 mg total) by mouth daily 05/29/20 Active methylPREDNISolon e (Medrol, Daniel,) 4 mg DosepackIndicatio ns:Acute maxillary sinusitis, recurrence not specified follow package directions 1 packet 07/21/19 24 Active Additional Information Patient not taking.Reported on 06/12/2024 albuterol HFA (PROVENTIL HFA,VENTOLIN HFA,PROAIR HFA) 90 mcg/actuation inhaler Inhale 2 puffs every 6 (six) hours 09/02/19 24 Active cholecalciferol (VITAMIN D-3) 50,000 unit capsule Take 1 capsule (50,000 Units total) by mouth once a week 05/28/20 24 Active gabapentin (NEURONTIN) 100 mg capsule Take 1 capsule (100 mg total) by mouth every morning 06/09/20 24 Active gabapentin (NEURONTIN) 300 mg capsule Take 1 capsule (300 mg total) by mouth 2 (two) times a day Active lisdexamfetamine (VYVANSE) 40 mg capsule Take by mouth daily 06/09/20 24 Active Active Problems Problem Noted Date Diagnosed Date Cervical radiculopathy 06/04/2022 Lumbar radiculopathy 06/04/2022 Pain in thoracic spine 10/17/2021 Thoracic radiculopathy 10/17/2021 Abdominal wall pain 10/17/2021 Insomnia secondary to chronic pain 10/17/2021 Chronic fatigue syndrome 08/05/2021 Blood glucose abnormal 07/25/2021 Hyperinsulinism 07/25/2021 Thoracic degenerative disc disease 07/25/2021 Anxiety 06/27/2020 Benign essential hypertension 11/09/2017 IBS (irritable bowel syndrome) 07/20/2012 Overview (08/05/2021): 07/20/2012 spells of crampy abd pain will try Levsin and report to PCP High risk medications (not anticoagulants) long- term use 03/30/2012 Obesity 03/30/2012 Disorder of joint 02/24/2012 Overview (09/24/2016): ARTHROPATHY NOS-UNSPEC Arthralgia of multiple joints 04/22/2011 Overview (09/23/2016): JOINT PAIN-MULT JTS Vitamin D deficiency 04/22/2011 Overview (09/24/2016): VITAMIN D DEFICIENCY NOS Abnormal C-reactive protein 04/22/2011 Overview (09/25/2016): Elevated C-Reactive Protein (CRP) Encounters Date Type Department Care Team Description 06/12/2024 12:00 PM MACHINE MAINTENANCE SERVICER Office Visit [facility] Con[facility]ient Care at [address] [address] Mariama Castellanos PA Viral URI with cough (Primary Dx) from Last 3 Months Medical History Medical History Date Comments Depression Depression Anxiety disorder Anxiety Hypertension Hypertension Arthritis Family History Medical History Relation Name Comments Rheum arthritis Mother Rheumatoid a rthritis; Hypothyroidism Other Family histor y of Hypothyroidism; Relation Name Status Comments Mother Other Social History Tobacco Use Types Packs/Day Years Used Date Smoking Tobacco: Never Smokeless Tobacco: Never Tobacco Cessation:Counseling Given: Not Answered Alcohol Use Standard Drinks/Week Comments Not Currently 0 (1 standard drink = 0.6 oz pur e alcohol) PHQ-2 Answer Date Recorded PHQ-2 Total Score (If total score is 3 or more points, staff should administer the PHQ-9) 0 03/23/2022 Comments No Sex and Gender Information Value Date Recorded Sex Assigned at Not on file Legal Sex Female 11:31 AM MACHINE MAINTENANCE SERVICER Gender Identity Not on file Sexual Orientation Not on file Obstetrics History Last Filed Vital Signs Vital Sign Reading Time Taken Comments Blood Pressure 140/82 06/12/2024 11:54 AM MACHINE MAINTENANCE SERVICER Pulse 75 06/12/2024 11:54 AM MACHINE MAINTENANCE SERVICER Temperature 36.6 C (97.9 F) 06/12/2024 11:54 AM MACHINE MAINTENANCE SERVICER Respiratory Rate 18 06/12/2024 11:54 AM MACHINE MAINTENANCE SERVICER Oxygen Saturation 97% 06/12/2024 11:54 AM MACHINE MAINTENANCE SERVICER Inhaled Oxygen Concentration - - Weight 113.4 kg (250 lb) 06/12/2024 11:54 AM MACHINE MAINTENANCE SERVICER Height 167.6 cm (5' 6 ) 06/12/2024 11:54 AM MACHINE MAINTENANCE SERVICER Body Mass Index 40.35 06/12/2024 11:54 AM MACHINE MAINTENANCE SERVICER Plan of Treatment Health Maintenance Due Date Last Done Comments Cervical Cancer Screening 1987 Hepatitis C Screening 1985 Varicella Vaccines (1 of 2 - 13+ 2-dose series) 11/03/2000 Hepatitis B Screening 11/03/2005 Regular Well Visit/Exam 18-64 11/03/2005 Depression Screening 03/23/2023 03/23/2022, 10/17/2021, 10/17/2021 Covid-19 Vaccine ( season) 2024 04/22/2022, 07/15/2021, 08/23/2020 Influenza Vaccine (#1) 2024 2, 03/22/2021, 04/04/2020, Additional history exists DTaP/Tdap/Td Vaccine (2 - Td or Tdap) 10/31/2028 10/31/2018, 08/19/2012 HPV Vaccines Aged Out No longer eligi ble based on patient's age to complete this topic Pneumococcal vaccine <65 Aged Out No longer eligible based on patient's age to complete this topic Goals Goal Patient Goal Type Associated Problems Recent Progress Patient-Stated? Author [facility] Chapo Christensen, RN Note: Play with kids and exercise with minimal to no pain. Sleep better. Procedures Procedure Name Priority Date/Time Associated Diagnosis Comments POC INFLUENZA A/B, COVID-19 ANTIGEN Routine 06/12/2024 12:17 PM MACHINE MAINTENANCE SERVICER Viral URI with cough from Last 3 Months Results * POC Influenza A/B, COVID-19 antigen (06/12/2024 12:17 PM MACHINE MAINTENANCE SERVICER) Influenza A Ag, POC Negative Negative [facility] Influenza B Ag, POC Negative Negative [facility] COVID-19 Ag POC Presumptive Negative Presumptive Negative, Invalid [facility] [place] Nasal 06/12/2024 12:1 7 PM MACHINE MAINTENANCE SERVICER Mariama UMANZOR POINT OF CARE TEST ORDERABLES Final Result [facility] [place] [address] [address], [facility] from Last 3 Months Insurance [facility] [employer] [facility] [employer] [place] [employer] [place] [employer] ACCESS CHOICE [facility] ACCESS CHOICE Care Teams Software Developer Consultant Relationship Specialty Start Date End Date Francine Venegas PA PCP - General 08/30/17 Stevenson Da Silva MD [address] [place] [address] Anesthesiologist Pain Management 06/04/22
--- OUTSIDE RECORDS SUMMARY | 2024-08-25 02:33 | XMS_ITS | Referral Summary ---
Author Organization [facility] Address [address] [place] [address] Care Team Providers Care Manager Fleet Name Role Phone Francine Venegas Primary Care Pr ovider Stevenson Da Silva MD Unavailable [phone] Encounters Date Type Department Care Team Description 06/12/2024 12:00 PM LAWN SERVICE SUPERVISOR Office Visit [facility] Convenient Care at [address] [place] [phone] Mariama Castellanos PA Viral URI with cough (Primary Dx) from Last 3 Months Allergies Active Allergy [...] XR) 500 mg 24 hr tablet 02/19/20 22 Active Mounjaro 2.5 mg/0.5 mL pen injector [...] as needed for pain 6 tablet 06/23/19 23 Active Additional Information Patient not taking.Reported [...] (25 mg total) by mouth daily 05/29/20 23 Active methylPREDNISolon e (Medrol, Daniel,) 4 mg [...] 04/22/2011 Overview (09/25/2016): Elevated C-Reactive Protein (CRP) Social History Tobacco Use Types Packs/Day Years [...] on file Legal Sex Female 11:31 AM LAWN SERVICE SUPERVISOR Gender Identity Not on file Sexual Orientation Not on file Last Filed Vital Signs Vital Sign Reading Time Taken Comments Blood Pressure 140/82 06/12/2024 11:54 AM LAWN SERVICE SUPERVISOR Pulse 75 06/12/2024 11:54 AM LAWN SERVICE SUPERVISOR Temperature 36.6 C (97.9 F) 06/12/2024 11:54 AM LAWN SERVICE SUPERVISOR Respiratory Rate 18 06/12/2024 11:54 AM LAWN SERVICE SUPERVISOR Oxygen Saturation 97% 06/12/2024 11:54 AM LAWN SERVICE SUPERVISOR Inhaled Oxygen Concentration - - Weight 113.4 kg (250 lb) 06/12/2024 11:54 AM LAWN SERVICE SUPERVISOR Height 167.6 cm (5' 6 ) 06/12/2024 11:54 AM LAWN SERVICE SUPERVISOR Body Mass Index 40.35 06/12/2024 11:54 AM LAWN SERVICE SUPERVISOR Plan of Treatment Not on file Goals Goal Patient Goal Type Associated Problems Recent Progress Patient-Stated? Author [facility] No Chapo Ayoub, RN Note: Play with kids and exercise with minimal to no pain. Sleep better. Procedures Procedure Name Priority Date/Time Associated Diagnosis Comments POC INFLUENZA A/B, COVID-19 ANTIGEN Routine 06/12/2024 12:17 PM LAWN SERVICE SUPERVISOR Viral URI with cough from Last 3 Months Results * POC Influenza A/B, COVID-19 antigen (06/12/2024 12:17 PM LAWN SERVICE SUPERVISOR) Influenza A Ag, POC Negative Negative [facility] [place] Influenza B Ag, POC Negative Negative [facility] COVID-19 Ag POC Presumptive Negative Presumptive Negative, Invalid [facility] Nasal 06/12/2024 12:1 7 PM LAWN SERVICE SUPERVISOR Mariama UMANZOR POINT OF CARE TEST ORDERABLES Final Result [address] [address], [facility] from Last 3 Months Insurance [facility] [employer] [facility] [email or web address] [place] [employer] [place] [employer] ACCESS CHOICE [employer] ACCESS CHOICE Care Teams Manager Fleet Relationship Specialty Start Date End Date Francine Venegas PA PCP - General 08/30/17 Stevenson Da Silva MD [address] [place] [address] [place] [address] Anesthesiologist Pain Management 06/04/22
--- OUTSIDE RECORDS SUMMARY | 2024-08-25 02:33 | XMS_ITS | Continuity of Care Document ---
Author Organization [facility] Address [address] [place] [address] Phone Care Team Providers Care Harnessmaker Apprentice Name Role Phone Willam Muniz PTA Unavailable Unavailable Procedures Procedure Date Therapeutic Activities Neuromuscular Re-Ed Therapeutic Exercise Therapeutic Activities Therapeutic Exercise Neuromuscular Re-Ed Therapeutic Activities Manual Therapy Therapeutic Exercise Therapeutic Activities Manual Therapy Therapeutic Exercise PT Evaluation Low Complexity Neuromuscular Re-Ed Therapeutic Exercise Therapeutic Activities Manual Therapy Advance Directives Directive Yes / No Effective Date File Name No Information Encounters Encounter Description Practice Location Reason(s) For Visit Diagnoses Date Provider Providers Copied on Encounter [facility] [address], [place], [place], [id number], tel:[phone] Kenji No Information Cristy Quarles. [address], [address], [place], [address], . tel:[phone] Referring Provider: Brenda Dey, [address] , [place], [address]. tel:[phone] [facility], [id number], tel:[phone] Kenji No Information Tanja Martínez. . Referring Provider: Brenda Dey, [address], [place], [address]. tel:[phone], [id number], tel:[phone] Kenji No Information Cristy Quarles. [address], [address], [place], [address], . tel:[phone] Referring Provider: Brenda Dey, [address], [place], [address]. tel:[phone], [id number], tel:[phone] Kenji No Information Modglin Romero. . Referring Provider: Brenda Dey, [address], [place], [address]. tel:[phone], [id number], tel:[phone] Kenji No Information Modglin Romero. . Referring Provider: Brenda Dey, [address], [place], [address]. tel:[phone] Family History Family Member Type Diagnosis Age At Onset No Information Payers Payer name Insurance type Covered libertarian ID Authoralec serna(s) [facility] [id number] Social History Type Description Quantity Date Captured Comments Sex Female Smoking Status No Information Chief Complaint And Reason For Visit No Information Reason For Referral Reason For Referral No Information History Of Present Illness Encounter Date Complaint History Of Prese nt Illness No Information Functional Status Date Functional Assessmen t No Information Instructions Date Instruction Additional Infor mation Giving encouragement to exercise Related to Overweight Giving encouragement to exercise Related to Overweight Assessments Type Assessment Date No Information Patient Care Teams Name Effective Dates (start - stop) Status Members No Information
--- OUTSIDE RECORDS SUMMARY | 2024-08-25 02:33 | XMS_ITS | Clinical Summary ---
Author Organization [facility] Address [address] [place] [address] Phone Care Team Providers Care Spool Worker Name Role Phone Francine Venegas Primary Care Provider Allergies No known active allergies Medications Nsuqtudb-Vvs-Vx -FA ( VITAMINS PO) Take 1 Tab by mouth daily. Active hydrochlorothia zide 25 MG Tablet TAKE ONE TABLET BY MOUTH ONCE DAILY 30 Tab 5 6 Active ALPRAZolam (XANAX) 0.25 MG Tablet Take 1 Tab by mouth daily as needed. 30 Tab 5 6 Active labetalol (NORMODYNE) 100 MG Tablet TAKE ONE TABLET BY MOUTH TWICE A DAY 60 Tab 11 6 Active busPIRone (BUSPAR) 10 MG Tablet 1 Active sertraline (ZOLOFT) 50 MG Tablet 0 Active Machelle 0.35 MG Tablet 0 Active ibuprofen (MOTRIN) 800 MG Tablet ibuprofen 800 mg tablet TAKE ONE TABLET BY MOUTH EVERY 8 HOURS AFTER MEALS Active fluticasone (FLONASE) 50 MCG/ACT Suspension fluticasone propionate 50 mcg/actuation nasal spray,suspension Active Norethindrone, Contraceptive, 0.35 MG Tablet Machelle 0.35 mg tablet Active meclizine (ANTIVERT) 25 MG TabletIndicatio ns:Vertigo Take 1 Tablet by mouth 3 times daily as needed for Dizziness. 30 Tablet Active Additional Information Patient not taking.Reported on 01/25/2022 methylPREDNISol one (Medrol) 4 MG Tablet Therapy PackIndications :Ear pain, right Use as per instructions on package. 21 Tablet Active Additional Information Patient not taking.Reported on 01/25/2022 Active Problems Problem Noted Date Diagnosed Date Chronic fatigue syndrome Obesity Immunizations Immunization Administration Dates Next Due Influenza Vaccine 04/22/2017 Influenza Vaccine, Quadrivalent, PF 03/22/2021,1 TD VACCINE 08/19/2012 Family History Medical History Relation Name Comments Thyroid Disease Father Hypertension Mother Thyroid Disease Mother Relation Name Status Comments Father Mother Social History Tobacco Use Types Packs/Day Years Used Date Smoking Tobacco: Former Cigarettes 0.3 8.8 1 08/01/2006 - 03/29/2016 Smokeless Tobacco: Never Tobacco Cessation:Ready to Q uit: No; Counseling Given: Yes Alcohol Use Standard Drinks/Week Comments Yes 0 (1 standard drink = 0.6 oz pur e alcohol) occasional Sexually Active Control Partners Comments Not Currently Comments No Sex and Gender Information Value Date Recorded Sex Assigned at Not on file Legal Sex Female 11:33 PM CDT Gender Identity Not on file Sexual Orientation Not on file Last Filed Vital Signs Vital Sign Reading Time Taken Comments Blood Pressure 160/90 04/01/2022 8:59 AM CDT Pulse 76 04/01/2022 8:59 AM CDT Temperature 37.2 C (98.9 F) 04/01/2022 8:59 AM CDT Respiratory Rate 15 04/01/2022 8:59 AM CDT Oxygen Saturation 96% 04/01/2022 8:59 AM CDT Inhaled Oxygen Concentration - - Weight 121.6 kg (268 lb) 01/25/2022 8:33 AM CDT Height 167.6 cm (5' 6 ) 04/09/2021 8:39 AM CDT Body Mass Index 43.26 04/09/2021 8:39 AM CDT Plan of Treatment Health Maintenance Due Date Last Done Comments Hepatitis C Virus (HCV) Screening 1987 Hepatitis B Immunization (1 of 3 - 19+ 3-dose series) 11/03/2006 Pap Smear 07/22/2017 07/22/2014 Cervical Cancer Screening (CCS) 11/03/2017 HPV/Cotest 11/03/2017 Influenza Immunization (#1) 2024 10/0 07/2020, 04/04/2020, 04/22/2017 SARS-COV-2 Immunization ( season) 2024 07/15/2021, 08/23/2020 Respiratory Syncytial Virus (RSV) Immunization (Adult) (1 - 1-dose 75+ series) 11/03/2062 TdaP Immunization Completed 10/31/2018 Meningococcal Immunization (ACWY) Aged Out No longer eligible b ased on patient's age to complete this topic Pneumococcal Immunization Combined Aged Out No longer eligible b ased on patient's age to complete this topic Rotavirus Immunization Aged Out No lo nger eligible based on patient's age to complete this topic Insurance [id number] Care Teams Spool Worker Relationship Specialty Start Date End Date Francine Venegas PA PCP - General Family Medicine 07/30/20
[2024-08-25 08:45] VITALS: BP 137/85; PULSE 70; RESP 16; TEMP 36.9; O2SAT 100
[2024-08-25] MEDS: LACTATED RINGERS 1,000 ML 30 ML IV CONT (09:00)
--- NOTE | 2024-08-25 09:04 | P.HP_ITS ---
H&P: HPI History of Present Illness Date/Time: 08/25/24 09:04 Chief Complaint: Heavy periods Narrative: She is here for scheduled endometrial ablation with hysteroscopy and possible dilation and curettage or removal of lesion if present. She is getting the ablation due to history of menorrhagia. She declines hormonal management for it. She declines IUD. She has opted for endometrial ablation. Endometrial biopsy normal. Review of Systems Review of Systems: All systems reviewed & are unremarkable except as noted in HPI and below Cardiovascular: Cardiovascular: Reports no additional cardiovascular complaints, Denies chest pain and Denies dyspnea Respiratory: Respiratory: Reports no additional respiratory complaints and Denies dyspnea Gastrointestinal: Gastrointestinal: Reports abdominal pain, Denies change in bowel habits, Denies diarrhea, Denies nausea and Denies vomiting Genitourinary: Genitourinary: Reports pelvic pain Musculoskeletal: Musculoskeletal: Reports back pain Integumentary/Breasts: Skin/Breast: Reports system reviewed and no additional complaints, except as docu Neurologic: Reports system reviewed and no additional complaints, except as documented [facility] Past Medical History Medical History ADHD Hypothyroidism Herniated disc Anxiety Depression Hypertension Surgical History Surgical History No significant past surgical history Family History Family History Mother Hypertension Social History Social History Smoking packs per day: 0.5 Smoking cigarettes per day: 10.0 Years smoked: 10 Smoking pack-years: 5.00 Smoking status: Former smoker Tobacco type: cigarettes Second hand tobacco smoke exposure: No Smoking end date: 06/21/15 Alcohol intake: never Substance use: never Living arrangements: with family Additional living arrangements comments: [facility] care concerns: No Meds Home Medications and Allergies Home Medications ?Medication ?Instructions ?Recorded ?Confirmed ?Type hydrochlorothiazide 25 mg tablet 25 mg PO DAILY 05/22/19 08/15/24 History cetirizine 10 mg capsule (Zyrtec) 10 mg PO DAILY PRN allergy symptoms 03/27/21 08/15/24 History metformin 500 mg tablet 500 mg PO DAILY 04/06/22 08/15/24 History tirzepatide 7.5 mg/0.5 mL 7.5 mg subcut WEEKLY 04/06/22 08/15/24 History subcutaneous pen injector (Michunletitia) levothyroxine 75 mcg capsule 75 mcg PO DAILY 06/24/23 08/15/24 History buspirone 10 mg tablet 10 mg PO BID #60 tabs 08/12/23 08/15/24 Rx labetalol 100 mg tablet 100 mg PO Q12H #60 tabs 08/12/23 08/15/24 Rx valsartan 160 mg tablet 160 mg PO DAILY #30 tabs 08/12/23 08/15/24 Rx sertraline 50 mg tablet 50 mg PO DAILY #90 tabs 06/08/24 08/15/24 Rx cholecalciferol (vitamin D3) 1,250 1,250 mcg PO WEEKLY 08/15/24 08/15/24 History mcg (50,000 unit) capsule gabapentin 100 mg capsule 100 mg PO DAILY 08/15/24 08/15/24 History gabapentin 300 mg capsule 300 mg PO Q12H 08/15/24 08/15/24 History lisdexamfetamine 30 mg capsule 30 mg PO DAILY 08/15/24 08/15/24 History phentermine 15 mg capsule 15 mg PO DAILY@1700 08/15/24 08/15/24 History dextroamphetamine-amphetamine 10 10 mg PO DAILY 08/17/24 History mg tablet (Adderall) ergocalciferol (vitamin D2) 1,250 1,250 mcg PO WEEKLY 08/17/24 History mcg (50,000 unit) capsule gabapentin 100 mg capsule 100 mg PO DAILY 08/17/24 History lisdexamfetamine 40 mg capsule 40 mg PO DAILY 08/17/24 History (Vyvanse) Allergies Allergy/AdvReac Type Severity Reaction Status Date / Time No Known Allergies Allergy Unknown Verified 08/17/24 15:19 Exam Const: Orientation/consciousness: oriented to person and oriented to place HENMT: Head: normal to inspection Eyes: General: appearance normal, both eyes and all related structures Resp: Effort & Inspection: normal respiratory effort Auscultation: clear to auscultation bilaterally Cardio: Rate: regular rate Rhythm: regular rhythm GI: Inspection: normal to inspection GI Palp: No Rebound tenderness present Neuro: General: oriented to person and oriented to place Cognition (Neuro): normal cognition Extrem: General: normal to inspection Psych: Appearance: grossly normal and well kempt Assessment and Plan Assessment and plan (1) Heavy menstrual bleeding: Code(s): N92.0 - Excessive and frequent menstruation with regular cycle Status: Acute Assessment and Plan: Will proceed with Kylee endometrial ablation with hysteroscopy and possible dilation and curettage or removal of lesion if present.
[2024-08-25 09:12] LABS: Glucose Point of Care 79 mg/dl (65-105)
[2024-08-25 09:28] LABS: Anion Gap 11 mmol/L (4-12); Blood Urea Nitrogen 16 mg/dL (7-17); Calcium 9.7 mg/dL (8.4-10.2); Carbon Dioxide 29 mmol/L (22-30); Chloride 102 mmol/L (98-107); Estimated CRCL calculation 130 ml/min; Estimated Glomerular Filt Rate > 60; Glucose 88 mg/dL (65-110); Potassium 4.1 mmol/L (3.4-5.0); Sodium 142 mmol/L (137-145)
[2024-08-25 09:40] LABS: BEDSIDEPREGUCG Negative (Negative)
--- NOTE | 2024-08-25 10:43 | P.PNAN_ITS ---
Anes - Initial Pre Proc Eval Procedure: Operation Date: 08/25/24 10:30 Proposed Procedures p Hysteroscopy Dilation and Curettage with Kylee Endometrial Ablation - Oleg Brandon MD Date/Time: 08/25/24 10:43 Surgeon: Oleg Brandon MD Pre Op Diagnosis: menorrhagia Patient Data Age: 38 Gender: F Height: 1.68 m Weight: 114.7 kg Last Vital Signs Temp 36.9 C 08/25/24 08:45 Pulse 70 08/25/24 08:45 Resp 16 08/25/24 08:45 BP 137/85 08/25/24 08:45 Pulse Ox 100 08/25/24 08:45 O2 Del Method Room Air 08/25/24 08:45 Allergies Allergy/AdvReac Type Severity Reaction Status Date / Time No Known Allergies Allergy Unknown Verified 08/25/24 09:30 Home Medications ?Medication ?Instructions ?Recorded ?Confirmed ?Type hydrochlorothiazide 25 mg tablet 25 mg PO DAILY 05/22/19 08/15/24 History cetirizine 10 mg capsule (Zyrtec) 10 mg PO DAILY PRN allergy symptoms 03/27/21 08/15/24 History metformin 500 mg tablet 500 mg PO DAILY 04/06/22 08/15/24 History tirzepatide 7.5 mg/0.5 mL 7.5 mg subcut WEEKLY 04/06/22 08/15/24 History subcutaneous pen injector (Jerod) levothyroxine 75 mcg capsule 75 mcg PO DAILY 06/24/23 08/25/24 History buspirone 10 mg tablet 10 mg PO BID #60 tabs 08/12/23 08/25/24 Rx labetalol 100 mg tablet 100 mg PO Q12H #60 tabs 08/12/23 08/25/24 Rx valsartan 160 mg tablet 160 mg PO DAILY #30 tabs 08/12/23 08/15/24 Rx sertraline 50 mg tablet 50 mg PO DAILY #90 tabs 06/08/24 08/25/24 Rx cholecalciferol (vitamin D3) 1,250 1,250 mcg PO WEEKLY 08/15/24 08/15/24 History mcg (50,000 unit) capsule gabapentin 100 mg capsule 100 mg PO DAILY 08/15/24 08/25/24 History gabapentin 300 mg capsule 300 mg PO Q12H 08/15/24 08/15/24 History lisdexamfetamine 30 mg capsule 30 mg PO DAILY 08/15/24 08/15/24 History phentermine 15 mg capsule 15 mg PO DAILY@1700 08/15/24 08/15/24 History dextroamphetamine-amphetamine 10 10 mg PO DAILY 08/17/24 History mg tablet (Adderall) ergocalciferol (vitamin D2) 1,250 1,250 mcg PO WEEKLY 08/17/24 History mcg (50,000 unit) capsule gabapentin 100 mg capsule 100 mg PO DAILY 08/17/24 08/25/24 History lisdexamfetamine 40 mg capsule 40 mg PO DAILY 08/17/24 History (Vyvanse) Laboratory Tests 08/25/24 08/25/24 08/25/24 08:45 08:55 09:06 Sodium 142 mmol/L (137-145) Potassium 4.1 mmol/L (3.4-5.0) Chloride 102 mmol/L (98-107) Carbon Dioxide 29 mmol/L (22-30) Anion Gap 11 mmol/L (4-12) BUN 16 mg/dL (7-17) Creatinine 0.66 L mg/dL (0.7-1.0) Estim Creat Clear Calc 130 ml/min Estimated GFR > 60 (59 - ) Glucose 88 mg/dL (65-110) POC Capillary Glucose 79 mg/dl (65-105) Calcium 9.7 mg/dL (8.4-10.2) POC Urine HCG, Qual Negative (Negative) Patient hx anesthesia problems: none Family hx anesthesia problems: none Results Review: All pre-operative results and documents have been reviewed as part of the pre- operative evaluation. [facility] Past Medical History Medical History ADHD Hypothyroidism Herniated disc Anxiety Depression Hypertension Surgical History Surgical History No significant past surgical history Family History Family History Mother Hypertension Social History Social History Smoking packs per day: 0.5 Smoking cigarettes per day: 10.0 Years smoked: 10 Smoking pack-years: 5.00 Smoking status: Former smoker Tobacco type: cigarettes Second hand tobacco smoke exposure: No Smoking end date: 06/21/15 Alcohol intake: never Substance use: never Living arrangements: with family Additional living arrangements comments: [facility] Spiritual care concerns: No Anes - Eval Final PreProcedure Day of Procedure 08/25/24 10:43 Patient weight: morbidly obese Heart: regular rate and rhythm Lungs: clear to auscultation Airway: Mallampati scale class II Neurological: alert and oriented Last oral intake: >/= 8 hours ASA classification: III Emergent: no Anesthetic plan: proceed Anesthesia type and monitoring: general GIVS and standard monitoring Results Review: All pre-operative results and documents have been reviewed as part of the pre- operative evaluation. Informed Consent: The patient's anesthetic plan and its attendant risks and benefits were discussed with the patient/family/POA. Questions were solicited and answers provided to the satisfaction of the patient/family/POA.
--- NOTE | 2024-08-25 10:57 | WPDHPUPDATE1 ---
History and Physical Update Update Date/Time: 08/25/24 10:57 History and Physical has been reviewed, including an updated exam of the patient. There are NO changes in the patient's condition. Risks, benefits, and alternatives have been discussed and questions answered. Patient agrees to proceed with procedure.
[2024-08-25] MEDS: ceFAZolin 2 GM/D5W 50 ML 2 GM/50 ML BAG IVPB (11:09)
[2024-08-25] MEDS: LIDOCAINE 1% LOCAL INJ 10 ML VIAL INFILTRATE (11:34)
[2024-08-25 11:39] VITALS: BP 154/98; PULSE 59; RESP 14; O2SAT 100
--- NOTE | 2024-08-25 11:43 | W.PM.PROC2 ---
Procedure Note - Detailed Date of Procedure 08/25/24 Pre-op Diagnosis menorrhagia Post-op Diagnosis Same Procedure Performed Hysteroscopy with Kylee endometrial ablation Surgeon Oleg Brandon MD Anesthesia MAC and Local Indications Menorrhagia Findings Uterus cavity normal, sound to 8.5cm, cervical length 4.5 cm. Description of Procedure After informed consent was obtained patient was taken to the operating room and adequate IV sedation was administered. Attention was turned to the vagina. Speculum was inserted. Single-tooth tenaculum placed on the anterior lip of the cervix. 10cc of 1% lidocaine was injected at cervicovaginal interface at the 2,5,8,10 position. The uterus was sounded to 8.5 cm. The cervix was dilated to an 8 Hernandez dilator. The cervical length was 4.5. The hysteroscope was inserted into the cavity. The findings were a normal uterine cavity. The hysteroscope was removed. The Kylee ablation instrument was inserted into the cavity. Cavity assessment was performed and confirmed intact. The ablation was enabled. After 120 seconds the Kylee stopped. The ablation instrument was removed. The hysteroscope was inserted and there was noted to be good eschar with the cavity. The hysteroscope was removed the single-tooth tenaculum was removed hemostasis was noted at the tenaculum site. Sponge count correct. The patient taken to recovery in stable condition. Estimated Blood Loss 5 Drains No Packing No Pathology None sent Complications No immediate complications Condition Stable Disposition Same day [facility] Billing Surgery - Charge Forward: Surgery Billing
[2024-08-25 12:00] VITALS: BP 155/104; PULSE 66; RESP 16; O2SAT 100
[2024-08-25] MEDS: fentaNYL CITRATE INJ (*CRX) 100 MCG/2 ML VIAL 25 MCG IV PUSH (12:13)
[2024-08-25 12:30] VITALS: BP 153/104; PULSE 58; RESP 16
[2024-08-25] MEDS: oxyCODONE HCL (*CRX) 5 MG TAB IR PO (12:34)
[2024-08-25 13:00] VITALS: BP 150/94; PULSE 58; RESP 16
== END 2024-08-25 13:20 | disposition home or self-care (01) ==
PROVIDERS: Anesthesiology; PCP Physician Assistant; Visit Provider Obstetrics & Gynecology
PROC: 0U5B8ZZ Destruction of Endometrium, Via Natural or Artificial Opening Endoscopic (ICD-10-PCS; CPT 58563; principal; 2024-08-25 10:30)
DX: N92.0 Excessive and frequent menstruation with regular cycle (principal); Z79.84 Long term (current) use of oral hypoglycemic drugs; Z87.891 Personal history of nicotine dependence; E66.01 Morbid (severe) obesity due to excess calories; Z68.41 Body mass index [BMI] 40.0-44.9, adult
CPT/HCPCS: 58563; 36415; 80048; 82948; A9270; J0690; J2003; J2250; J2405; J2704; J3010; J7120